=== PATIENT | female | born 1980 | race Caucasian/White ===

== ENCOUNTER 2017-07-08 06:02 | Inpatient (IN) | payer MEDICAID, OTHER ==
[~2017-07-08] VITALS: Ht 152.4 cm; Wt 119.1 kg
[~2017-07-08 06:02] MED LIST: ACET500T63 PO; DIPH50CA PO; DIVA500T4 PO; HYDR25CA PO; RISP1TAB45 PO
[2017-07-08] MEDS ORDERED: NALOXONE 0.4 MG/ML, 1ML ONE (06:41)
[2017-07-08 06:51] LABS: BLOOD UREA NITROGEN 24 mg/dL (7-18)
[2017-07-08 06:56] LABS: ACETAMINOPHEN 4 mcg/mL (10-30)
[2017-07-08] MEDS ORDERED: NALOXONE 0.4 MG/ML, 1ML IVPush ONE (07:00)
[2017-07-08 07:06] LABS: ASPARTATE AMINO TRANSFERASE 3017 U/L (15-37)
[2017-07-08 07:08] LABS: HEMATOCRIT 35.7 % (34.6-47.8); HEMOGLOBIN 11.8 g/dL (11.7-16.4); WHITE BLOOD COUNT 8.7 x10^3/uL (3.4-10)
[2017-07-08 07:10] LABS: DIFF TOTAL CELLS COUNTED 100 CELL DIFF
[2017-07-08 07:14] LABS: VERIFY COUNTS? YES
[2017-07-08 07:15] LABS: ANISOCYTOSIS 1+; POLYCHROMASIA 1+
[2017-07-08] MEDS ORDERED: SODIUM CHLORIDE 0.9% 1,000 ML IV ONE (07:16)
[2017-07-08 07:19] LABS: DAU SCREEN DISCLAIMER
[2017-07-08] MEDS ORDERED: SODIUM POLY SULFONATE UDC 15 GM/60 ML PO ONE (07:30)
[2017-07-08] MEDS ORDERED: ALBUTEROL 0.5%, 20ML NPPB ONE (07:30)
[2017-07-08] MEDS ORDERED: SODIUM CHLORIDE 0.9% 1,000ML IVBOLUS ONE ×2 (07:30→08:30)
[2017-07-08] MEDS ORDERED: ACETYLCYSTEINE 20%, 30ML PO SCH (07:30)
[2017-07-08] MEDS ORDERED: SODIUM CHLORIDE FLUSH 10ML SYR IVF ONE (07:30)
[2017-07-08] MEDS ORDERED: ACETYLCYSTEINE 20%, 30ML PO ONE (07:30)
[2017-07-08] MEDS ORDERED: INSULIN REGULAR 100 UNITS/ML, 3ML VIAL IVPush ONE (07:30)
[2017-07-08] MEDS ORDERED: CALCIUM CHLORIDE 10%, 10ML SYR IVPush ONE (07:30)
[2017-07-08] MEDS ORDERED: DEXTROSE 50%, 50ML SYRINGE IVPush ONE (07:30)
[2017-07-08] MEDS ORDERED: DEXTROSE 50%, 50ML VIAL ONE (07:40)
[2017-07-08] MEDS ORDERED: CALCIUM CHLORIDE 10%, 10ML SYR ONE (07:40)
[2017-07-08] MEDS ORDERED: SODIUM POLYSTYRENE SULFONATE ORAL SUSP ONE ×2 (07:41→07:54)
[2017-07-08] MEDS ORDERED: INSULIN REGULAR 100 UNITS/ML, 3ML VIAL ONE (07:42)
[2017-07-08] MEDS ORDERED: DEXTROSE 5% IV ONE ×6 (09:00→14:00)
[2017-07-08] MEDS ORDERED: ACETYLCYSTEINE IV ONE ×6 (09:00→14:00)
[2017-07-08] MEDS ORDERED: ALBUTEROL/IPRATROPIUM 2.5MG/0.5MG, 3 ML ONE (10:58)
[2017-07-08] MEDS ORDERED: TEMAZEPAM 15 MG CAPSULE PO PRN (11:00)
[2017-07-08] MEDS: HEPARIN 5,000 UNITS/ML, 1ML SQ SCH ×2 (11:00→19:00)
[2017-07-08] MEDS ORDERED: POLYETHYLENE GLYCOL 17 GM PACKET PO PRN (11:00)
[2017-07-08] MEDS ORDERED: LABETALOL 5MG/ML, 20ML IVPush PRN (11:00)
[2017-07-08] MEDS: NICOTINE 21 MG/24 HR PATCH.TD24 TD SCH (11:00)
[2017-07-08] MEDS ORDERED: ONDANSETRON 2MG/ML, 2ML IVPush PRN (11:00)
[2017-07-08] MEDS: SODIUM CHLORIDE 0.9% 1,000 ML IV SCH ×2 (12:44→22:06)
[2017-07-08 15:08] LABS: BLOOD UREA NITROGEN 30 mg/dL (7-18)
[2017-07-08] MEDS: INSULIN ASPART 100 UNITS/ML, PEN SQ-INSULIN SCH ×2 (15:31→23:38)
[2017-07-08] MEDS ORDERED: ACETYLCYSTEINE 10,000 MG in DEXTROSE 5% 1,000 ML IV ONE (16:30)
[2017-07-08] MEDS ORDERED: OXYcodone IR 5MG TABLET ONE (17:48)
[2017-07-08] MEDS: OXYcodone IR 5MG TABLET PO PRN ×2 (17:50→23:36)
[2017-07-09] MEDS: HEPARIN 5,000 UNITS/ML, 1ML SQ SCH (03:00)
[2017-07-09] MEDS ORDERED: PNEUMOCOCCAL 23 VACCINE IM-VACC ONE (04:00)
[2017-07-09 05:01] LABS: HEMATOCRIT 30.5 % (34.6-47.8); HEMOGLOBIN 10.6 g/dL (11.7-16.4); WHITE BLOOD COUNT 2.9 x10^3/uL (3.4-10)
[2017-07-09 05:07] LABS: BLOOD UREA NITROGEN 35 mg/dL (7-18)
[2017-07-09 05:34] LABS: ASPARTATE AMINO TRANSFERASE 10825 U/L (15-37); TOTAL IRON BINDING CAPACITY 314 mcg/dL (250-450)
[2017-07-09 05:40] LABS: FERRITIN > 2000.0 ng/mL (8-252)
[2017-07-09 05:47] LABS: DIFF TOTAL CELLS COUNTED 100 CELL DIFF
[2017-07-09 05:56] LABS: ANISOCYTOSIS 1+; POLYCHROMASIA 1+; VERIFY COUNTS? YES
[2017-07-09] MEDS: SODIUM CHLORIDE 0.9% 1,000 ML IV SCH ×4 (05:56→23:59)
[2017-07-09] MEDS: OXYcodone IR 5MG TABLET PO PRN ×2 (05:56→21:23)
[2017-07-09] MEDS ORDERED: MAGNESIUM SULFATE PMX 2GM/50ML 50 ML IV ONE (08:00)
[2017-07-09] MEDS: INSULIN ASPART 100 UNITS/ML, PEN SQ-INSULIN SCH ×4 (08:18→20:15)
[2017-07-09] MEDS: LACTULOSE 10 GM/15 ML UDC PO SCH ×3 (09:27→21:11)
[2017-07-09] MEDS: CHOLECALCIFEROL 1,000 UNIT TABLET PO SCH (09:28)
[2017-07-09] MEDS: PANTOPROZOLE 40MG TABLET PO SCH (09:28)
[2017-07-09] MEDS: SENNA/DOCUSATE TABLET PO SCH (09:28)
[2017-07-09] MEDS: ACETYLCYSTEINE 10,000 MG in DEXTROSE 5% 1,000 ML IV SCH (10:12)
[2017-07-09] MEDS: NICOTINE 21 MG/24 HR PATCH.TD24 TD SCH (11:00)
[2017-07-09 14:31] LABS: BLOOD UREA NITROGEN 37 mg/dL (7-18)
[2017-07-09 14:54] LABS: ASPARTATE AMINO TRANSFERASE 8480 U/L (15-37)
[2017-07-09] MEDS ORDERED: POTASSIUM CHLORIDE 20 MEQ TAB.ER.PRT PO ONE (16:00)
[2017-07-10] MEDS: OXYcodone IR 5MG TABLET PO PRN ×2 (02:03→06:15)
[2017-07-10 04:00] VITALS: BP 152/89
[2017-07-10] MEDS: ACETYLCYSTEINE 10,000 MG in DEXTROSE 5% 1,000 ML IV SCH ×2 (04:12→23:44)
[2017-07-10 04:38] LABS: HEMATOCRIT 31.6 % (34.6-47.8); HEMOGLOBIN 10.9 g/dL (11.7-16.4); WHITE BLOOD COUNT 3.8 x10^3/uL (3.4-10)
[2017-07-10 05:02] LABS: DIFF TOTAL CELLS COUNTED 100 CELL DIFF
[2017-07-10 05:04] LABS: ANISOCYTOSIS 1+; POLYCHROMASIA 1+; VERIFY COUNTS? YES
[2017-07-10 05:07] LABS: ASPARTATE AMINO TRANSFERASE 8472 U/L (15-37); BLOOD UREA NITROGEN 38 mg/dL (7-18)
[2017-07-10] MEDS: INSULIN ASPART 100 UNITS/ML, PEN SQ-INSULIN SCH ×4 (06:22→20:49)
[2017-07-10] MEDS ORDERED: POTASSIUM CHLORIDE 20 MEQ TAB.ER.PRT PO ONE (07:30)
[2017-07-10] MEDS: METOPROLOL TARTRATE 25 MG TABLET PO SCH ×2 (08:48→18:27)
[2017-07-10] MEDS: SENNA/DOCUSATE TABLET PO SCH (08:49)
[2017-07-10] MEDS: PANTOPROZOLE 40MG TABLET PO SCH (08:49)
[2017-07-10] MEDS: CHOLECALCIFEROL 1,000 UNIT TABLET PO SCH (08:49)
[2017-07-10] MEDS: SODIUM CHLORIDE 0.9% 1,000 ML IV SCH (08:50)
[2017-07-10] MEDS: LACTULOSE 10 GM/15 ML UDC PO SCH ×3 (09:55→20:49)
[2017-07-10 11:04] VITALS: BP 144/87
[2017-07-10] MEDS: NICOTINE 21 MG/24 HR PATCH.TD24 TD SCH (12:32)
[2017-07-10 18:41] VITALS: BP 151/74
[2017-07-11] MEDS: SODIUM CHLORIDE 0.9% 1,000 ML IV SCH ×3 (02:05→11:41)
[2017-07-11 02:14] VITALS: BP 138/84
[2017-07-11 04:49] LABS: BLOOD UREA NITROGEN 31 mg/dL (7-18)
[2017-07-11 05:01] LABS: HEMATOCRIT 30.9 % (34.6-47.8); HEMOGLOBIN 10.6 g/dL (11.7-16.4); WHITE BLOOD COUNT 3.3 x10^3/uL (3.4-10)
[2017-07-11 05:04] LABS: ASPARTATE AMINO TRANSFERASE 2519 U/L (15-37)
[2017-07-11 05:47] LABS: DIFF TOTAL CELLS COUNTED 100 CELL DIFF
[2017-07-11 05:49] LABS: VERIFY COUNTS? YES
[2017-07-11 05:50] LABS: POLYCHROMASIA 1+
[2017-07-11] MEDS: METOPROLOL TARTRATE 25 MG TABLET PO SCH ×2 (06:05→18:04)
[2017-07-11 07:14] VITALS: BP 172/109
[2017-07-11] MEDS ORDERED: POTASSIUM CHLORIDE 20 MEQ TAB.ER.PRT PO ONE (07:30)
[2017-07-11 08:27] VITALS: BP 117/76
[2017-07-11] MEDS: PANTOPROZOLE 40MG TABLET PO SCH (08:46)
[2017-07-11] MEDS: CHOLECALCIFEROL 1,000 UNIT TABLET PO SCH (08:46)
[2017-07-11] MEDS: LACTULOSE 20 GM/30 ML UDC PO SCH ×2 (08:46→17:10)
[2017-07-11] MEDS: INSULIN ASPART 100 UNITS/ML, PEN SQ-INSULIN SCH ×3 (08:51→17:09)
[2017-07-11] MEDS: SENNA/DOCUSATE TABLET PO SCH (09:00)
[2017-07-11] MEDS: NICOTINE 21 MG/24 HR PATCH.TD24 TD SCH ×2 (11:44→11:46)
[2017-07-11] MEDS ORDERED: ACETYLCYSTEINE 10,000 MG in DEXTROSE 5% 1,000 ML IV SCH (13:00)
[2017-07-11] MEDS ORDERED: TRAM50TA2 PO (14:38)
[2017-07-11] MEDS ORDERED: PANT40TA5 PO (14:38)
[2017-07-11] MEDS ORDERED: CHOL10003 PO (14:38)
[2017-07-11] MEDS ORDERED: INSU100I18 SQ-INSULIN (14:38)
[2017-07-11] MEDS ORDERED: LACT20SO13 PO (14:38)
[2017-07-11] MEDS ORDERED: METO25TA35 PO (14:38)
[2017-07-11 18:07] VITALS: BP 162/85
== END 2017-07-11 18:10 | disposition short-term general hospital (02) | DRG 441 ==
LOC: ED 06:56 → EDIP 10:08 → CCU 21:42 → 3NW 07-10 10:58
PROVIDERS: ADMIT Internal Medicine; ATTEND Internal Medicine
DX: K72.00 Acute and subacute hepatic failure without coma (principal); N17.0 Acute kidney failure with tubular necrosis; G92 Toxic encephalopathy; D61.818 Other pancytopenia; E11.65 Type 2 diabetes mellitus with hyperglycemia; D68.9 Coagulation defect, unspecified; E87.2 Acidosis; E11.21 Type 2 diabetes mellitus with diabetic nephropathy; B17.9 Acute viral hepatitis, unspecified; E87.1 Hypo-osmolality and hyponatremia; F31.30 Bipolar disorder, current episode depressed, mild or moderate severity, unspecified; T39.1X1A Poisoning by 4-Aminophenol derivatives, accidental (unintentional), initial encounter; E83.42 Hypomagnesemia; E87.5 Hyperkalemia; E87.6 Hypokalemia; F10.20 Alcohol dependence, uncomplicated; F11.10 Opioid abuse, uncomplicated; F15.90 Other stimulant use, unspecified, uncomplicated; F17.210 Nicotine dependence, cigarettes, uncomplicated; E55.9 Vitamin D deficiency, unspecified; F41.1 Generalized anxiety disorder; F43.10 Post-traumatic stress disorder, unspecified; G89.29 Other chronic pain; I10 Essential (primary) hypertension; J45.909 Unspecified asthma, uncomplicated; K70.9 Alcoholic liver disease, unspecified; L20.9 Atopic dermatitis, unspecified; K76.0 Fatty (change of) liver, not elsewhere classified; Z59.0 Homelessness; Z88.2 Allergy status to sulfonamides; Z91.5 Personal history of self-harm; Z28.82 Immunization not carried out because of caregiver refusal
CPT/HCPCS: 36415; 71010; 76700; 76770; 80048; 80053; 80307; 80329; 81001; 82140; 82306; 82570; 82728; 82962; 83540; 83550; 83605; 83735; 83970; 84100; 84156; 84439; 84443; 84703; 85025; 85610; 87040; 87081; 93005; 94640; 96361; 96365; 96366; 96375; J0132; J1815; J2310; J2405; J7060; J7070; G0480; J3475; J7030

== ENCOUNTER 2017-08-10 09:35 | Emergency (ER) | payer MEDICAID ==
[~2017-08-10] VITALS: Ht 165.1 cm; Wt 100.0 kg
[~2017-08-10 09:35] MED LIST changes: +CHOL10003 PO; +INSU100I18 SQ-INSULIN; +LACT20SO13 PO; +METO25TA35 PO; +PANT40TA5 PO; +TRAM50TA2 PO
[2017-08-10 09:36] VITALS: BP 124/76
[2017-08-10] MEDS ORDERED: MORPHINE SULFATE 4 MG/ML, 1ML IVPush PRN (10:00)
[2017-08-10] MEDS ORDERED: ONDANSETRON 2MG/ML, 2ML IVPush ONE (10:00)
[2017-08-10] MEDS ORDERED: SODIUM CHLORIDE 0.9% 1,000ML IVBOLUS ONE (10:00)
[2017-08-10] MEDS ORDERED: ONDANSETRON 2MG/ML, 2ML ONE (10:01)
[2017-08-10 10:02] LABS: HEMATOCRIT 39.3 % (34.6-47.8); HEMOGLOBIN 13.2 g/dL (11.7-16.4); WHITE BLOOD COUNT 6.7 x10^3/uL (3.4-10)
[2017-08-10] MEDS ORDERED: MORPHINE SULFATE 4 MG/ML, 1ML ONE (10:02)
[2017-08-10 10:11] LABS: BLOOD UREA NITROGEN 16 mg/dL (7-18)
[2017-08-10 10:16] LABS: ASPARTATE AMINO TRANSFERASE 26 U/L (15-37)
== END 2017-08-10 12:28 | disposition home or self-care (01) ==
LOC: ED 10:32
DX: R10.31 Right lower quadrant pain (principal); R19.7 Diarrhea, unspecified; R35.0 Frequency of micturition; R11.0 Nausea; E11.9 Type 2 diabetes mellitus without complications; I10 Essential (primary) hypertension; F10.20 Alcohol dependence, uncomplicated; J45.909 Unspecified asthma, uncomplicated
CPT/HCPCS: 36415; 76830; 80053; 81003; 84703; 85025; 96361; 96374; 96375; 99285; J2405; J7030

== ENCOUNTER 2017-08-12 01:16 | Emergency (ER) | payer MEDICAID ==
[~2017-08-12] VITALS: Ht 154.9 cm; Wt 104.0 kg
[2017-08-12] MEDS ORDERED: MORPHINE SULFATE 4 MG/ML, 1ML ONE (01:46)
[2017-08-12] MEDS ORDERED: ONDANSETRON 2MG/ML, 2ML ONE (01:46)
[2017-08-12 01:53] LABS: HEMATOCRIT 36.8 % (34.6-47.8); HEMOGLOBIN 12.3 g/dL (11.7-16.4); WHITE BLOOD COUNT 6.7 x10^3/uL (3.4-10)
[2017-08-12 01:59] LABS: ASPARTATE AMINO TRANSFERASE 19 U/L (15-37); BLOOD UREA NITROGEN 15 mg/dL (7-18)
[2017-08-12] MEDS ORDERED: ONDANSETRON 2MG/ML, 2ML IVPush ONE (02:00)
[2017-08-12] MEDS ORDERED: MORPHINE SULFATE 4 MG/ML, 1ML IVPush PRN (02:00)
[2017-08-12] MEDS ORDERED: SODIUM CHLORIDE 0.9% 1,000ML IVBOLUS ONE (02:00)
[2017-08-12] MEDS ORDERED: ATOM25CA PO (02:06)
[2017-08-12] MEDS ORDERED: DIVA250T4 PO (02:06)
[2017-08-12] MEDS ORDERED: ZOLP10TA PO (02:06)
[2017-08-12] MEDS ORDERED: ONDA4TAB7 PO (02:06)
[2017-08-12] MEDS ORDERED: ASPI-515 PO (02:06)
[2017-08-12] MEDS ORDERED: SITA50TA PO (02:06)
[2017-08-12] MEDS ORDERED: HYDR25CA PO (02:06)
[2017-08-12] MEDS ORDERED: HYDR-3240 PO (02:06)
[2017-08-12] MEDS ORDERED: CLON1TAB PO (02:06)
[2017-08-12] MEDS ORDERED: LORazepam 1MG TABLET ONE (02:36)
[2017-08-12] MEDS ORDERED: OMNIPAQUE 350 MG/ML, 100ML BOTTLE ONE (02:54)
[2017-08-12] MEDS ORDERED: LORazepam 1MG TABLET PO ONE (03:00)
[2017-08-12 04:24] VITALS: BP 115/44
== END 2017-08-12 04:28 | disposition home or self-care (01) ==
LOC: ED 01:50
DX: Z76.0 Encounter for issue of repeat prescription (principal); K43.9 Ventral hernia without obstruction or gangrene; R00.2 Palpitations; F31.9 Bipolar disorder, unspecified; F43.12 Post-traumatic stress disorder, chronic; E11.9 Type 2 diabetes mellitus without complications; J45.909 Unspecified asthma, uncomplicated; I10 Essential (primary) hypertension; F10.20 Alcohol dependence, uncomplicated; F41.1 Generalized anxiety disorder; Z88.2 Allergy status to sulfonamides
CPT/HCPCS: 36415; 74177; 80053; 81003; 83690; 84703; 85025; 93005; 96361; 96374; 96375; 99285; J2405; J7030; Q9967

== ENCOUNTER 2017-08-16 07:36 | Emergency (ER) | payer MEDICAID ==
[~2017-08-16] VITALS: Ht 154.9 cm; Wt 104.0 kg
[~2017-08-16 07:36] MED LIST changes: +ASPI-515 PO; +ATOM25CA PO; +CLON1TAB PO; +DIVA250T4 PO; +HYDR-3240 PO; +ONDA4TAB7 PO; +SITA50TA PO; +ZOLP10TA PO
[2017-08-16] MEDS ORDERED: HYDROcodone/APAP 5/325 TABLET PO ONE (08:00)
[2017-08-16] MEDS ORDERED: ONDANSETRON ODT 4 MG PO ONE (08:00)
[2017-08-16] MEDS ORDERED: ONDANSETRON ODT 4 MG ONE (08:07)
[2017-08-16 08:41] VITALS: BP 119/64
== END 2017-08-16 08:43 | disposition home or self-care (01) ==
LOC: ED 07:55
DX: K43.9 Ventral hernia without obstruction or gangrene (principal); R10.31 Right lower quadrant pain; R11.0 Nausea; E11.9 Type 2 diabetes mellitus without complications; J45.909 Unspecified asthma, uncomplicated; I10 Essential (primary) hypertension
CPT/HCPCS: 99283; Q0162

== ENCOUNTER 2017-08-21 10:41 | Emergency (ER) | payer MEDICAID ==
[~2017-08-21] VITALS: Ht 154.9 cm; Wt 100.6 kg
[2017-08-21] MEDS ORDERED: ONDANSETRON ODT 4 MG ONE (11:17)
[2017-08-21] MEDS ORDERED: LORazepam 2 MG/ML, 1ML ONE (11:17)
[2017-08-21 11:22] VITALS: BP 157/99
[2017-08-21] MEDS ORDERED: LORazepam 2 MG/ML, 1ML IM ONE (11:30)
[2017-08-21] MEDS ORDERED: ONDANSETRON ODT 4 MG PO ONE (11:30)
[2017-08-21 11:35] LABS: HEMATOCRIT 39.4 % (34.6-47.8); HEMOGLOBIN 13.3 g/dL (11.7-16.4); WHITE BLOOD COUNT 6.7 x10^3/uL (3.4-10)
[2017-08-21 11:43] LABS: ASPARTATE AMINO TRANSFERASE 100 U/L (15-37); BLOOD UREA NITROGEN 7 mg/dL (7-18)
[2017-08-21] MEDS ORDERED: ALBUTEROL SULFATE 2.5 MG/3 ML NPPB ONE (12:00)
[2017-08-21] MEDS ORDERED: ALBUTEROL SULFATE 2.5 MG/3 ML ONE (12:02)
[2017-08-21 12:48] LABS: ACETAMINOPHEN < 2 mcg/mL (10-30)
[2017-08-21 13:18] LABS: DAU SCREEN DISCLAIMER
[2017-08-21] MEDS ORDERED: MAALOX/HYOSCYAMINE/LIDOCAINE 45 ML BTL PO ONE (14:00)
[2017-08-21] MEDS ORDERED: MAALOX/HYOSCYAMINE/LIDOCAINE 45 ML BTL ONE (14:06)
[2017-08-25] MEDS ORDERED: QUET100T4 PO (06:37)
[2017-08-25] MEDS ORDERED: ALBU1.25 NEB (06:38)
[2017-08-25] MEDS ORDERED: MELO7.5T5 PO (06:38)
== END 2017-08-21 14:11 | disposition home or self-care (01) ==
LOC: ED 14:05
DX: J20.8 Acute bronchitis due to other specified organisms (principal); I10 Essential (primary) hypertension; F15.10 Other stimulant abuse, uncomplicated; F32.9 Major depressive disorder, single episode, unspecified; E11.9 Type 2 diabetes mellitus without complications; Z88.2 Allergy status to sulfonamides
CPT/HCPCS: 36415; 80053; 80307; 80329; 83690; 84703; 85025; 94640; 96372; 99284; J2060; Q0162; J7613; G0479; G0480

== ENCOUNTER 2018-01-06 19:19 | Emergency (ER) | payer MEDICAID ==
[~2018-01-06] VITALS: Ht 154.9 cm; Wt 100.0 kg
[~2018-01-06 19:19] MED LIST changes: +ALBU1.25 NEB; +MELO7.5T5 PO; +QUET100T4 PO
[2018-01-06 19:59] LABS: BASOPHILS # (AUTO) 0.05 x10^3/uL (0-0.1); BASOPHILS % (AUTO) 1 % (0-1); EOSINOPHILS # (AUTO) 0.07 x10^3/uL (0-0.4); EOSINOPHILS % (AUTO) 1 % (1-7); LYMPHOCYTES # (AUTO) 1.91 x10^3/uL (1-3.4); LYMPHOCYTES % (AUTO) 36 % (22-44); MD NO; MEAN CORPUSCULAR HEMOGLOBIN 30.4 pg (27.0-34.8); MEAN CORPUSCULAR HGB CONC 33.5 g/dL (32.4-35.8); MEAN CORPUSCULAR VOLUME 90.9 fL (80-100); MEAN PLATELET VOLUME 7.6 fL (7.4-10.4); MONOCYTES # (AUTO) 0.36 x10^3/uL (0.2-0.8); MONOCYTES % (AUTO) 7 % (2-9); NEUTROPHILS # (AUTO) 2.93 x10^3/uL (1.8-6.8); NEUTROPHILS % (AUTO) 55 % (42-75); PLATELET COUNT 311 x10^3/uL (130-400); RED BLOOD COUNT 4.18 x10^6/uL (3.82-5.3); RED CELL DISTRIBUTION WIDTH 14.4 % (9.6-15.2)
[2018-01-06] MEDS ORDERED: KETOROLAC 30 MG/1 ML ONE (19:59)
[2018-01-06] MEDS ORDERED: DIPHENHYDRAMINE 50 MG/ML, 1ML ONE (19:59)
[2018-01-06] MEDS ORDERED: METOCLOPRAMIDE 5 MG/ML, 2ML ONE (19:59)
[2018-01-06] MEDS ORDERED: SODIUM CHLORIDE 0.9% 1,000ML IVBOLUS ONE (20:00)
[2018-01-06] MEDS ORDERED: DIPHENHYDRAMINE 50 MG/ML, 1ML IVPush ONE (20:00)
[2018-01-06] MEDS ORDERED: SODIUM CHLORIDE FLUSH 10ML SYR IVF ONE (20:00)
[2018-01-06] MEDS ORDERED: KETOROLAC 30 MG/1 ML IVPush ONE (20:00)
[2018-01-06] MEDS ORDERED: METOCLOPRAMIDE 5 MG/ML, 2ML IVPush ONE (20:00)
[2018-01-06 20:06] LABS: ALANINE AMINOTRANSFERASE 52 U/L (12-78); ALBUMIN 3.7 g/dL (3.4-5.0); ANION GAP 10 mmol/L (5-15); CALCIUM 8.2 mg/dL (8.5-10.1); CHLORIDE 106 mmol/L (98-107); CREATININE 0.68 mg/dL (0.55-1.02)
[2018-01-06 20:08] LABS: ALKALINE PHOSPHATASE 56 U/L (45-117); BILIRUBIN,TOTAL 0.2 mg/dL (0.2-1.0); TOTAL PROTEIN 7.5 g/dL (6.4-8.2)
[2018-01-06 20:46] LABS: MICROSCOPIC NOT IND
[2018-01-06 20:52] LABS: CULTURE INDICATED? NO
[2018-01-06 21:52] VITALS: BP 114/59
== END 2018-01-06 21:58 | disposition home or self-care (01) ==
LOC: ED 21:52
DX: R10.84 Generalized abdominal pain (principal); I10 Essential (primary) hypertension; E11.9 Type 2 diabetes mellitus without complications; J45.909 Unspecified asthma, uncomplicated
CPT/HCPCS: 36415; 80053; 81003; 83690; 85025; 96361; 96374; 96375; 99285; J1200; J1885; J2765; J7030

== ENCOUNTER 2018-01-13 09:42 | Emergency (ER) | payer MEDICAID ==
[~2018-01-13] VITALS: Ht 152.4 cm; Wt 105.3 kg
[2018-01-13 11:24] LABS: MICROSCOPIC NOT IND
[2018-01-13] MEDS ORDERED: MAALOX/HYOSCYAMINE/LIDOCAINE 45 ML BTL PO ONE (12:00)
[2018-01-13] MEDS ORDERED: KETOROLAC 30 MG/1 ML IVPush ONE (12:00)
[2018-01-13] MEDS ORDERED: METOCLOPRAMIDE 5 MG/ML, 2ML IVPush ONE (12:00)
[2018-01-13] MEDS ORDERED: FAMOTIDINE 20 MG/2 ML IVP ONE (12:00)
[2018-01-13] MEDS ORDERED: DIPHENHYDRAMINE 50 MG/ML, 1ML IVPush ONE (12:00)
[2018-01-13] MEDS ORDERED: SODIUM CHLORIDE FLUSH 10ML SYR IVF ONE ×2 (12:00)
[2018-01-13] MEDS ORDERED: SODIUM CHLORIDE 0.9% 1,000ML IVBOLUS ONE (12:00)
[2018-01-13 12:33] LABS: BASOPHILS # (AUTO) 0.03 x10^3/uL (0-0.1); BASOPHILS % (AUTO) 0 % (0-1); EOSINOPHILS # (AUTO) 0.11 x10^3/uL (0-0.4); EOSINOPHILS % (AUTO) 2 % (1-7); LYMPHOCYTES # (AUTO) 1.61 x10^3/uL (1-3.4); LYMPHOCYTES % (AUTO) 21 % (22-44); MD NO; MEAN CORPUSCULAR HEMOGLOBIN 30.7 pg (27.0-34.8); MEAN CORPUSCULAR VOLUME 90.4 fL (80-100); MEAN PLATELET VOLUME 8.1 fL (7.4-10.4); MONOCYTES # (AUTO) 0.44 x10^3/uL (0.2-0.8); MONOCYTES % (AUTO) 6 % (2-9); NEUTROPHILS # (AUTO) 5.47 x10^3/uL (1.8-6.8); NEUTROPHILS % (AUTO) 72 % (42-75); PLATELET COUNT 215 x10^3/uL (130-400); RED BLOOD COUNT 4.14 x10^6/uL (3.82-5.3); RED CELL DISTRIBUTION WIDTH 14.3 % (9.6-15.2)
[2018-01-13 12:40] LABS: ALANINE AMINOTRANSFERASE 34 U/L (12-78); ALBUMIN 3.7 g/dL (3.4-5.0); ANION GAP 7 mmol/L (5-15); CALCIUM 9.2 mg/dL (8.5-10.1); CHLORIDE 104 mmol/L (98-107)
[2018-01-13 12:42] LABS: ALKALINE PHOSPHATASE 64 U/L (45-117); BILIRUBIN,TOTAL 0.3 mg/dL (0.2-1.0); TOTAL PROTEIN 7.3 g/dL (6.4-8.2)
[2018-01-13] MEDS ORDERED: DIPHENHYDRAMINE 50 MG/ML, 1ML ONE (12:47)
[2018-01-13] MEDS ORDERED: KETOROLAC 30 MG/1 ML ONE (12:47)
[2018-01-13] MEDS ORDERED: METOCLOPRAMIDE 5 MG/ML, 2ML ONE (12:47)
[2018-01-13] MEDS ORDERED: MAALOX/HYOSCYAMINE/LIDOCAINE 45 ML BTL ONE (12:47)
[2018-01-13] MEDS ORDERED: FAMOTIDINE 20 MG/2 ML ONE (12:47)
[2018-01-13 12:57] VITALS: BP 102/57
== END 2018-01-13 14:18 | disposition home or self-care (01) ==
LOC: ED 13:26
DX: K29.70 Gastritis, unspecified, without bleeding (principal); F10.20 Alcohol dependence, uncomplicated; Z88.2 Allergy status to sulfonamides; E11.9 Type 2 diabetes mellitus without complications; F32.9 Major depressive disorder, single episode, unspecified; F43.10 Post-traumatic stress disorder, unspecified; G89.29 Other chronic pain; I10 Essential (primary) hypertension; K29.00 Acute gastritis without bleeding; Z79.82 Long term (current) use of aspirin
CPT/HCPCS: 36415; 80053; 81003; 83690; 85025; 96361; 96374; 96375; 99284; J1200; J1885; J2765; J7030; S0028

== ENCOUNTER 2018-05-01 18:49 | Emergency (ER) | payer MEDICAID ==
[~2018-05-01] VITALS: Ht 152.4 cm; Wt 77.5 kg
[~2018-05-01 18:49] MED LIST changes: +AMOX1TAB64 PO; +DIVA500T2 PO; +FOLI-17 PO; +OMEP-110 PO; +THIA100T10 PO
[2018-05-01] MEDS ORDERED: KETOROLAC 30 MG/1 ML IVPush ONE (19:00)
[2018-05-01] MEDS ORDERED: SODIUM CHLORIDE FLUSH 10ML SYR IVF ONE (19:00)
[2018-05-01] MEDS ORDERED: METOCLOPRAMIDE 5 MG/ML, 2ML IVPush ONE (19:00)
[2018-05-01] MEDS ORDERED: OMNIPAQUE 350 MG/ML, 100ML BOTTLE ONE (19:00)
[2018-05-01] MEDS ORDERED: CHLORDIAZEPOXIDE 10 MG CAPSULE PO PRN (19:00)
[2018-05-01] MEDS ORDERED: SODIUM CHLORIDE 0.9% 1,000ML IVBOLUS ONE (19:00)
[2018-05-01 19:21] LABS: CULTURE INDICATED? YES; MICROSCOPIC INDICATED
[2018-05-01] MEDS ORDERED: NORCO (19:21)
[2018-05-01] MEDS ORDERED: LISINOPRIL PO (19:21)
[2018-05-01 19:26] LABS: BASOPHILS # (AUTO) 0.01 x10^3/uL (0-0.1); BASOPHILS % (AUTO) 0 % (0-1); EOSINOPHILS # (AUTO) 0.08 x10^3/uL (0-0.4); EOSINOPHILS % (AUTO) 1 % (1-7); LYMPHOCYTES # (AUTO) 1.61 x10^3/uL (1-3.4); LYMPHOCYTES % (AUTO) 26 % (22-44); MD NO; MEAN CORPUSCULAR HEMOGLOBIN 29.9 pg (27.0-34.8); MEAN CORPUSCULAR HGB CONC 33.6 g/dL (32.4-35.8); MEAN CORPUSCULAR VOLUME 88.8 fL (80-100); MEAN PLATELET VOLUME 7.9 fL (7.4-10.4); MONOCYTES # (AUTO) 0.39 x10^3/uL (0.2-0.8); MONOCYTES % (AUTO) 6 % (2-9); NEUTROPHILS # (AUTO) 4.14 x10^3/uL (1.8-6.8); NEUTROPHILS % (AUTO) 66 % (42-75); PLATELET COUNT 224 x10^3/uL (130-400); RED BLOOD COUNT 4.33 x10^6/uL (3.82-5.3); RED CELL DISTRIBUTION WIDTH 15.3 % (9.6-15.2)
[2018-05-01] MEDS ORDERED: CHLORDIAZEPOXIDE 10 MG CAPSULE PO ONE (19:30)
[2018-05-01 19:36] LABS: ALANINE AMINOTRANSFERASE 25 U/L (12-78); ALBUMIN 3.3 g/dL (3.4-5.0); ANION GAP 6 mmol/L (5-15); CALCIUM 8.8 mg/dL (8.5-10.1); CHLORIDE 106 mmol/L (98-107); CREATININE 0.66 mg/dL (0.55-1.02)
[2018-05-01 19:38] LABS: ALKALINE PHOSPHATASE 53 U/L (45-117); BILIRUBIN,TOTAL 0.2 mg/dL (0.2-1.0)
[2018-05-01] MEDS ORDERED: KETOROLAC 30 MG/1 ML ONE (19:43)
[2018-05-01] MEDS ORDERED: METOCLOPRAMIDE 5 MG/ML, 2ML ONE (19:43)
[2018-05-01] MEDS ORDERED: CHLORDIAZEPOXIDE 10 MG CAPSULE ONE (19:43)
[2018-05-01 21:18] VITALS: BP 100/50
== END 2018-05-01 22:19 | disposition home or self-care (01) ==
LOC: ED 22:10
DX: K43.2 Incisional hernia without obstruction or gangrene (principal); Z76.0 Encounter for issue of repeat prescription; R11.0 Nausea; E11.9 Type 2 diabetes mellitus without complications; I10 Essential (primary) hypertension; J45.909 Unspecified asthma, uncomplicated
CPT/HCPCS: 36415; 74177; 80053; 81001; 83690; 85025; 87086; 96374; 96375; 99285; J1885; J2765; J7030; Q9967

== ENCOUNTER 2018-05-04 13:06 | Emergency (ER) | payer MEDICAID ==
[~2018-05-04 13:06] MED LIST changes: +LISINOPRIL PO; +NORCO
== END 2018-05-04 13:48 | disposition left against medical advice (07) ==
LOC: ED 13:42
DX: F10.129 Alcohol abuse with intoxication, unspecified (principal); I10 Essential (primary) hypertension; E11.9 Type 2 diabetes mellitus without complications; F17.200 Nicotine dependence, unspecified, uncomplicated
CPT/HCPCS: 99283

== ENCOUNTER 2018-05-11 20:19 | Emergency (ER) | payer MEDICAID ==
[~2018-05-11] VITALS: Ht 154.9 cm; Wt 96.0 kg
[2018-05-11 20:25] VITALS: BP 101/58
== END 2018-05-11 22:04 | disposition home or self-care (01) ==
LOC: ED 21:58
DX: F10.129 Alcohol abuse with intoxication, unspecified (principal); E11.9 Type 2 diabetes mellitus without complications; J45.909 Unspecified asthma, uncomplicated; F15.10 Other stimulant abuse, uncomplicated; I10 Essential (primary) hypertension; F43.10 Post-traumatic stress disorder, unspecified
CPT/HCPCS: 99283

== ENCOUNTER 2018-05-22 06:34 | Emergency (ER) | payer MEDICAID ==
[~2018-05-22] VITALS: Ht 154.9 cm; Wt 97.5 kg
[2018-05-22] MEDS ORDERED: MAALOX/HYOSCYAMINE/LIDOCAINE 45 ML BTL ONE (06:57)
[2018-05-22] MEDS ORDERED: LORazepam 2 MG/ML, 1ML ONE (06:58)
[2018-05-22] MEDS ORDERED: PLEASE ENTER HEIGHT AND WEIGHT MC SCH (07:00)
[2018-05-22] MEDS ORDERED: SODIUM CHLORIDE 0.9% 1,000ML IVBOLUS ONE (07:00)
[2018-05-22] MEDS ORDERED: LORazepam 2 MG/ML, 1ML IVPush ONE (07:00)
[2018-05-22] MEDS ORDERED: MAALOX/HYOSCYAMINE/LIDOCAINE 45 ML BTL PO ONE (07:00)
[2018-05-22] MEDS ORDERED: ONDANSETRON 2MG/ML, 2ML ONE (07:14)
[2018-05-22] MEDS ORDERED: ONDANSETRON ODT 4 MG PO ONE (07:30)
[2018-05-22 07:31] LABS: BASOPHILS # (AUTO) 0.05 x10^3/uL (0-0.1); BASOPHILS % (AUTO) 1 % (0-1); EOSINOPHILS # (AUTO) 0.12 x10^3/uL (0-0.4); EOSINOPHILS % (AUTO) 2 % (1-7); LYMPHOCYTES # (AUTO) 1.75 x10^3/uL (1-3.4); LYMPHOCYTES % (AUTO) 27 % (22-44); MD NO; MEAN CORPUSCULAR HEMOGLOBIN 30.3 pg (27.0-34.8); MEAN CORPUSCULAR HGB CONC 33.6 g/dL (32.4-35.8); MEAN CORPUSCULAR VOLUME 90.3 fL (80-100); MEAN PLATELET VOLUME 7.9 fL (7.4-10.4); MONOCYTES # (AUTO) 0.44 x10^3/uL (0.2-0.8); MONOCYTES % (AUTO) 7 % (2-9); NEUTROPHILS # (AUTO) 4.04 x10^3/uL (1.8-6.8); NEUTROPHILS % (AUTO) 63 % (42-75); PLATELET COUNT 277 x10^3/uL (130-400); RED BLOOD COUNT 4.43 x10^6/uL (3.82-5.3); RED CELL DISTRIBUTION WIDTH 15.9 % (9.6-15.2)
[2018-05-22 07:43] LABS: ALANINE AMINOTRANSFERASE 54 U/L (12-78); ALBUMIN 3.7 g/dL (3.4-5.0); ANION GAP 6 mmol/L (5-15); CALCIUM 8.4 mg/dL (8.5-10.1); CHLORIDE 108 mmol/L (98-107)
[2018-05-22 07:48] LABS: ALKALINE PHOSPHATASE 68 U/L (45-117); BILIRUBIN,TOTAL 0.2 mg/dL (0.2-1.0); TOTAL PROTEIN 7.5 g/dL (6.4-8.2)
[2018-05-22 07:53] LABS: MICROSCOPIC NOT IND
[2018-05-22 08:00] LABS: CULTURE INDICATED? NO
[2018-05-22] MEDS ORDERED: CHLORDIAZEPOXIDE 25 MG CAPSULE ONE (10:40)
[2018-05-22] MEDS ORDERED: CHLORDIAZEPOXIDE 25 MG CAPSULE PO PRN (11:00)
[2018-05-22 11:26] VITALS: BP 128/78
== END 2018-05-22 11:35 | disposition home or self-care (01) ==
LOC: ED 11:02
DX: F10.20 Alcohol dependence, uncomplicated (principal); Y90.0 Blood alcohol level of less than 20 mg/100 ml; F19.10 Other psychoactive substance abuse, uncomplicated; Z72.9 Problem related to lifestyle, unspecified; I10 Essential (primary) hypertension; E11.9 Type 2 diabetes mellitus without complications; F17.200 Nicotine dependence, unspecified, uncomplicated; Z79.899 Other long term (current) drug therapy
CPT/HCPCS: 36415; 80053; 80307; 81003; 83690; 84703; 85025; 96374; 99285; J2060; J7030

== ENCOUNTER 2018-05-25 05:52 | Emergency (ER) | payer MEDICAID ==
[~2018-05-25] VITALS: Ht 154.9 cm; Wt 94.8 kg
[2018-05-25 05:53] VITALS: BP 129/80
[2018-05-25] MEDS ORDERED: LORazepam 1MG TABLET ONE (06:10)
[2018-05-25] MEDS ORDERED: MAALOX/HYOSCYAMINE/LIDOCAINE 45 ML BTL ONE (06:10)
[2018-05-25] MEDS ORDERED: IBUPROFEN 200 MG TABLET PO ONE (06:30)
[2018-05-25] MEDS ORDERED: MAALOX/HYOSCYAMINE/LIDOCAINE 45 ML BTL PO ONE (06:30)
[2018-05-25] MEDS ORDERED: LORazepam 1MG TABLET PO ONE (06:30)
[2018-05-25] MEDS ORDERED: IBUPROFEN 200 MG TABLET ONE (06:30)
== END 2018-05-25 06:56 | disposition home or self-care (01) ==
LOC: ED 06:50
DX: K29.20 Alcoholic gastritis without bleeding (principal); F10.220 Alcohol dependence with intoxication, uncomplicated; E11.9 Type 2 diabetes mellitus without complications; J45.909 Unspecified asthma, uncomplicated; F15.10 Other stimulant abuse, uncomplicated; I10 Essential (primary) hypertension; F32.9 Major depressive disorder, single episode, unspecified; F41.9 Anxiety disorder, unspecified; Y90.9 Presence of alcohol in blood, level not specified
CPT/HCPCS: 82962; 99284

== ENCOUNTER 2018-05-26 22:00 | Emergency (ER) | payer MEDICAID ==
[~2018-05-26] VITALS: Ht 154.9 cm; Wt 95.8 kg
[2018-05-26 22:03] VITALS: BP 100/66
== END 2018-05-26 22:38 | disposition home or self-care (01) ==
LOC: ED 22:18
DX: F41.1 Generalized anxiety disorder (principal); R07.89 Other chest pain
CPT/HCPCS: 93005; 99284

== ENCOUNTER 2018-05-31 05:59 | Emergency (ER) | payer MEDICAID ==
[~2018-05-31] VITALS: Ht 170.2 cm; Wt 120.0 kg
[2018-05-31 09:49] VITALS: BP 133/76
[2018-06-01] MEDS ORDERED: BUSP10TA PO (17:58)
[2018-06-01] MEDS ORDERED: QUET100T4 PO (17:58)
[2018-06-01] MEDS ORDERED: OMEP20TA62 PO (17:59)
[2018-06-01] MEDS ORDERED: HYDR50CA PO (18:01)
[2018-06-01] MEDS ORDERED: METO25TA35 PO (18:01)
[2018-06-03] MEDS ORDERED: DIVA500T2 PO (13:06)
[2018-06-03] MEDS ORDERED: PRAZ2CAP2 PO (13:06)
[2018-06-03] MEDS ORDERED: CITA20TA6 PO (13:06)
[2018-06-03] MEDS ORDERED: LISI-167 PO (13:06)
== END 2018-05-31 10:23 | disposition home or self-care (01) ==
LOC: ED 07:06
DX: F10.229 Alcohol dependence with intoxication, unspecified (principal); E11.9 Type 2 diabetes mellitus without complications; I10 Essential (primary) hypertension; J45.909 Unspecified asthma, uncomplicated; F32.9 Major depressive disorder, single episode, unspecified; F43.10 Post-traumatic stress disorder, unspecified; F15.10 Other stimulant abuse, uncomplicated; Y90.9 Presence of alcohol in blood, level not specified
CPT/HCPCS: 99283

== ENCOUNTER 2018-09-02 03:54 | Emergency (ER) | payer MEDICAID ==
[~2018-09-02] VITALS: Ht 154.9 cm; Wt 91.9 kg
[~2018-09-02 03:54] MED LIST changes: +BUSP10TA PO; +CITA20TA6 PO; +CLON0.5T11 PO; +DIVA-59 PO; +HYDR-3307 PO; +HYDR25TA11 PO; +HYDR50CA PO; +LISI-167 PO; +LORA-446 PO; +METF500T PO; +OMEP20TA62 PO; +PRAZ2CAP2 PO; +QUET100T PO; +QUET200T PO
[2018-09-02] MEDS ORDERED: CHLORDIAZEPOXIDE 25 MG CAPSULE ONE (05:26)
[2018-09-02] MEDS ORDERED: ONDANSETRON ODT 4 MG ONE (05:27)
[2018-09-02] MEDS ORDERED: FAMOTIDINE 20 MG TABLET PO ONE (05:30)
[2018-09-02] MEDS ORDERED: ONDANSETRON ODT 8 MG PO ONE (05:30)
[2018-09-02] MEDS ORDERED: CHLORDIAZEPOXIDE 25 MG CAPSULE PO ONE (05:30)
[2018-09-02] MEDS ORDERED: FAMOTIDINE 20 MG TABLET ONE (05:31)
[2018-09-02 06:25] LABS: BASOPHILS # (AUTO) 0.04 x10^3/uL (0-0.1); BASOPHILS % (AUTO) 1 % (0-1); EOSINOPHILS # (AUTO) 0.05 x10^3/uL (0-0.4); EOSINOPHILS % (AUTO) 1 % (1-7); LYMPHOCYTES # (AUTO) 1.91 x10^3/uL (1-3.4); LYMPHOCYTES % (AUTO) 21 % (22-44); MD NO; MEAN CORPUSCULAR HEMOGLOBIN 30.5 pg (27.0-34.8); MEAN CORPUSCULAR HGB CONC 33.8 g/dL (32.4-35.8); MEAN CORPUSCULAR VOLUME 90.2 fL (80-100); MEAN PLATELET VOLUME 7.6 fL (7.4-10.4); MONOCYTES # (AUTO) 0.69 x10^3/uL (0.2-0.8); MONOCYTES % (AUTO) 7 % (2-9); NEUTROPHILS % (AUTO) 71 % (42-75); PLATELET COUNT 324 x10^3/uL (130-400); RED BLOOD COUNT 4.99 x10^6/uL (3.82-5.3); RED CELL DISTRIBUTION WIDTH 15.3 % (9.6-15.2)
[2018-09-02 06:32] LABS: INTERNATIONAL NORMALIZED RATIO 1.03 (0.93-1.1); PROTHROMBIN TIME 10.6 Seconds (9.6-11.5)
[2018-09-02 06:36] LABS: ALANINE AMINOTRANSFERASE 32 U/L (12-78); ALBUMIN 3.9 g/dL (3.4-5.0); ANION GAP 13 mmol/L (5-15); CALCIUM 9.4 mg/dL (8.5-10.1); CHLORIDE 101 mmol/L (98-107); CREATININE 0.68 mg/dL (0.55-1.02)
[2018-09-02 06:38] LABS: ALKALINE PHOSPHATASE 71 U/L (45-117); BILIRUBIN,TOTAL 0.6 mg/dL (0.2-1.0)
[2018-09-02 06:58] LABS: MICROSCOPIC AUTO
[2018-09-02 07:07] LABS: CULTURE INDICATED? YES
[2018-09-02 07:09] LABS: SALICYLATE LEVEL 2.1 mg/dL (2.8-20.0)
[2018-09-02 07:10] VITALS: BP 101/54
[2018-09-02 07:26] LABS: ACETAMINOPHEN < 2 mcg/mL (10-30)
[2018-09-02 07:49] LABS: AMPHETAMINE SCREEN, URINE Positive (Negative); BARBITURATE SCREEN, URINE Negative (Negative); BENZODIAZEPINE SCREEN, URINE Negative (Negative); CANNABINOID SCREEN, URINE Negative (Negative); COCAINE SCREEN, URINE Negative (Negative); METHADONE SCREEN, URINE Negative (Negative); OPIATE SCREEN, URINE Negative (Negative)
== END 2018-09-02 09:02 | disposition home or self-care (01) ==
LOC: ED 06:03
DX: F15.10 Other stimulant abuse, uncomplicated (principal); F41.1 Generalized anxiety disorder; I10 Essential (primary) hypertension; F31.9 Bipolar disorder, unspecified; E11.9 Type 2 diabetes mellitus without complications; F17.200 Nicotine dependence, unspecified, uncomplicated
CPT/HCPCS: 36415; 80053; 80307; 80329; 81001; 83690; 84703; 85025; 85610; 87086; 99284; Q0162; G0480

== ENCOUNTER 2018-10-02 07:40 | Observation (INO) | payer MEDICAID ==
[~2018-10-02] VITALS: Ht 154.9 cm; Wt 80.0 kg
[2018-10-02] MEDS ORDERED: LORazepam 1MG TABLET ONE (08:25)
[2018-10-02] MEDS ORDERED: LORazepam 1MG TABLET PO ONE (08:30)
[2018-10-02 08:33] LABS: BASOPHILS # (AUTO) 0.06 x10^3/uL (0-0.1); BASOPHILS % (AUTO) 1 % (0-1); EOSINOPHILS # (AUTO) 0.16 x10^3/uL (0-0.4); EOSINOPHILS % (AUTO) 4 % (1-7); LYMPHOCYTES # (AUTO) 1.28 x10^3/uL (1-3.4); LYMPHOCYTES % (AUTO) 29 % (22-44); MD NO; MEAN CORPUSCULAR HEMOGLOBIN 30.2 pg (27.0-34.8); MEAN CORPUSCULAR HGB CONC 33.4 g/dL (32.4-35.8); MEAN CORPUSCULAR VOLUME 90.5 fL (80-100); MEAN PLATELET VOLUME 7.5 fL (7.4-10.4); MONOCYTES # (AUTO) 0.33 x10^3/uL (0.2-0.8); MONOCYTES % (AUTO) 8 % (2-9); NEUTROPHILS # (AUTO) 2.55 x10^3/uL (1.8-6.8); NEUTROPHILS % (AUTO) 58 % (42-75); PLATELET COUNT 256 x10^3/uL (130-400); RED BLOOD COUNT 4.44 x10^6/uL (3.82-5.3); RED CELL DISTRIBUTION WIDTH 15.5 % (9.6-15.2)
[2018-10-02 08:36] LABS: ALANINE AMINOTRANSFERASE 58 U/L (12-78); ALBUMIN 3.4 g/dL (3.4-5.0); ANION GAP 7 mmol/L (5-15); CALCIUM 8.2 mg/dL (8.5-10.1); CHLORIDE 108 mmol/L (98-107); SALICYLATE LEVEL 3.5 mg/dL (2.8-20.0)
[2018-10-02 08:38] LABS: ACETAMINOPHEN < 2 mcg/mL (10-30)
[2018-10-02 08:39] LABS: ALKALINE PHOSPHATASE 68 U/L (45-117); BILIRUBIN,TOTAL 0.2 mg/dL (0.2-1.0); CREATININE 0.55 mg/dL (0.55-1.02)
[2018-10-02 08:42] LABS: TROPONIN I < 0.015 ng/mL (0.000-0.045)
[2018-10-02 09:23] LABS: HCG UR SG 1.021 (1.003-1.030)
[2018-10-02 09:29] LABS: AMPHETAMINE SCREEN, URINE Positive (Negative); BARBITURATE SCREEN, URINE Negative (Negative); BENZODIAZEPINE SCREEN, URINE Positive (Negative); CANNABINOID SCREEN, URINE Negative (Negative); COCAINE SCREEN, URINE Negative (Negative); METHADONE SCREEN, URINE Negative (Negative); OPIATE SCREEN, URINE Negative (Negative)
[2018-10-02] MEDS ORDERED: ASPIRIN 325 MG TABLET PO ONE (09:30)
[2018-10-02] MEDS ORDERED: ASPIRIN 325 MG TABLET ONE (09:53)
[2018-10-02] MEDS ORDERED: ALBUTEROL SULFATE 2.5 MG/3 ML NEB PRN (15:00)
[2018-10-02] MEDS ORDERED: ACETAMINOPHEN 325 MG TABLET PO PRN (15:00)
[2018-10-02] MEDS ORDERED: ONDANSETRON ODT 4 MG PO PRN (15:00)
[2018-10-02] MEDS ORDERED: KETOROLAC 30 MG/1 ML IM PRN (15:00)
[2018-10-02] MEDS ORDERED: NICOTINE 14MG/24 HR PATCH.TD24 ONE (15:11)
[2018-10-02] MEDS: NICOTINE 14MG/24 HR PATCH.TD24 TD SCH (15:14)
[2018-10-02] MEDS: INSULIN REGULAR 100 UNITS/ML, 3ML VIAL SQ-INSULIN SCH ×2 (16:00→21:00)
[2018-10-02] MEDS: metFORMIN 500 MG TABLET PO SCH (17:18)
[2018-10-02 17:35] VITALS: BP 125/78
[2018-10-02 17:37] VITALS: BP 125/78
[2018-10-02] MEDS: LORazepam 1MG TABLET PO PRN (18:20)
[2018-10-02 20:00] VITALS: BP 145/73
[2018-10-02] MEDS ORDERED: PRAZOSIN 1 MG CAPSULE ONE (20:44)
[2018-10-02] MEDS: DIVALPROEX 250 MG TABLET.DR PO SCH (20:45)
[2018-10-02] MEDS: PRAZOSIN 2 MG CAPSULE PO SCH (20:45)
[2018-10-03] MEDS: metFORMIN 500 MG TABLET PO SCH ×2 (07:58→16:55)
[2018-10-03 08:05] VITALS: BP 117/77
[2018-10-03] MEDS: INSULIN REGULAR 100 UNITS/ML, 3ML VIAL SQ-INSULIN SCH ×4 (08:23→21:00)
[2018-10-03] MEDS: METOPROLOL TARTRATE 25 MG TABLET PO SCH (08:34)
[2018-10-03] MEDS: DIVALPROEX 250 MG TABLET.DR PO SCH ×2 (08:35→20:18)
[2018-10-03] MEDS: ASPIRIN 81 MG TABLET EC PO SCH (08:35)
[2018-10-03] MEDS: QUETIAPINE 100MG TABLET PO SCH (08:36)
[2018-10-03] MEDS: LISINOPRIL 10 MG TABLET PO SCH (08:36)
[2018-10-03] MEDS ORDERED: SITAGLIPTIN PHOSPHATE 25 MG PO SCH (09:00)
[2018-10-03] MEDS: LINAGLIPTIN 5 MG TAB PO SCH (09:48)
[2018-10-03 12:21] VITALS: BP 136/69
[2018-10-03] MEDS ORDERED: ALUMINUM/MAG/SIMETHICONE 30 ML UDC PO PRN (14:30)
[2018-10-03] MEDS: NICOTINE 14MG/24 HR PATCH.TD24 TD SCH (16:52)
[2018-10-03] MEDS ORDERED: PRAZOSIN 1 MG CAPSULE ONE (20:12)
[2018-10-03 20:14] VITALS: BP 99/66
[2018-10-03] MEDS: PRAZOSIN 2 MG CAPSULE PO SCH ×2 (20:17→21:00)
[2018-10-04 00:51] VITALS: BP 98/70
[2018-10-04 02:45] VITALS: BP 126/76
[2018-10-04] MEDS: INSULIN REGULAR 100 UNITS/ML, 3ML VIAL SQ-INSULIN SCH ×4 (07:00→21:15)
[2018-10-04] MEDS: LORazepam 1MG TABLET PO PRN ×2 (07:19→18:06)
[2018-10-04 08:00] VITALS: BP 127/85
[2018-10-04] MEDS: METOPROLOL TARTRATE 25 MG TABLET PO SCH (09:15)
[2018-10-04] MEDS: DIVALPROEX 250 MG TABLET.DR PO SCH ×2 (09:15→21:14)
[2018-10-04] MEDS: metFORMIN 500 MG TABLET PO SCH ×2 (09:15→16:57)
[2018-10-04] MEDS: LINAGLIPTIN 5 MG TAB PO SCH (09:16)
[2018-10-04] MEDS: ASPIRIN 81 MG TABLET EC PO SCH (09:16)
[2018-10-04] MEDS: QUETIAPINE 100MG TABLET PO SCH (09:16)
[2018-10-04] MEDS: LISINOPRIL 10 MG TABLET PO SCH (09:16)
[2018-10-04 13:47] VITALS: BP 109/73
[2018-10-04] MEDS: NICOTINE 14MG/24 HR PATCH.TD24 TD SCH (16:07)
[2018-10-04 19:51] VITALS: BP 128/92
[2018-10-04] MEDS: PRAZOSIN 2 MG CAPSULE PO SCH (21:15)
== END 2018-10-04 21:54 ==
LOC: ED 08:08 → EDIP 13:45 → 2N 15:30
PROVIDERS: ADMIT Family Medicine; ATTEND Family Medicine
DX: R45.851 Suicidal ideations (principal); F31.9 Bipolar disorder, unspecified; J45.909 Unspecified asthma, uncomplicated; F43.10 Post-traumatic stress disorder, unspecified; F41.1 Generalized anxiety disorder; E11.65 Type 2 diabetes mellitus with hyperglycemia; F10.10 Alcohol abuse, uncomplicated; I10 Essential (primary) hypertension; F15.10 Other stimulant abuse, uncomplicated; F60.3 Borderline personality disorder; F17.200 Nicotine dependence, unspecified, uncomplicated; Z79.4 Long term (current) use of insulin; Z91.14 Patient's other noncompliance with medication regimen
CPT/HCPCS: 36415; 80053; 80307; 80329; 81025; 82962; 84484; 85025; 93005; 99285; G0378; Q0177; G0480

== ENCOUNTER 2018-11-02 07:41 | Emergency (ER) | payer MEDICAID ==
[~2018-11-02] VITALS: Ht 154.9 cm; Wt 100.0 kg
[2018-11-02 08:24] LABS: PH, VENOUS 7.359 pH (7.320-7.420)
[2018-11-02 08:26] LABS: AMPHETAMINE SCREEN, URINE Positive (Negative); BARBITURATE SCREEN, URINE Positive (Negative); BENZODIAZEPINE SCREEN, URINE Negative (Negative); CANNABINOID SCREEN, URINE Negative (Negative); COCAINE SCREEN, URINE Negative (Negative); METHADONE SCREEN, URINE Negative (Negative); OPIATE SCREEN, URINE Negative (Negative)
[2018-11-02 08:26] LABS: BASOPHILS # (AUTO) 0.04 x10^3/uL (0-0.1); BASOPHILS % (AUTO) 0 % (0-1); EOSINOPHILS # (AUTO) 0.01 x10^3/uL (0-0.4); EOSINOPHILS % (AUTO) 0 % (1-7); LYMPHOCYTES # (AUTO) 1.61 x10^3/uL (1-3.4); LYMPHOCYTES % (AUTO) 20 % (22-44); MD NO; MEAN CORPUSCULAR HGB CONC 33.4 g/dL (32.4-35.8); MEAN CORPUSCULAR VOLUME 89.7 fL (80-100); MEAN PLATELET VOLUME 7.2 fL (7.4-10.4); MONOCYTES # (AUTO) 0.32 x10^3/uL (0.2-0.8); MONOCYTES % (AUTO) 4 % (2-9); NEUTROPHILS # (AUTO) 6.07 x10^3/uL (1.8-6.8); NEUTROPHILS % (AUTO) 76 % (42-75); PLATELET COUNT 312 x10^3/uL (130-400); RED BLOOD COUNT 4.92 x10^6/uL (3.82-5.3); RED CELL DISTRIBUTION WIDTH 15.6 % (9.6-15.2)
[2018-11-02 08:30] LABS: FIO2 ROOM AIR %
[2018-11-02] MEDS ORDERED: LORazepam 1MG TABLET PO ONE (08:30)
[2018-11-02 08:38] LABS: ALANINE AMINOTRANSFERASE 29 U/L (12-78); ALBUMIN 4.4 g/dL (3.4-5.0); ANION GAP 13 mmol/L (5-15); CALCIUM 8.7 mg/dL (8.5-10.1); CHLORIDE 98 mmol/L (98-107); CREATININE 0.57 mg/dL (0.55-1.02)
[2018-11-02 08:42] LABS: ALKALINE PHOSPHATASE 68 U/L (45-117); BILIRUBIN,TOTAL 0.2 mg/dL (0.2-1.0); TOTAL PROTEIN 8.4 g/dL (6.4-8.2)
[2018-11-02 08:53] LABS: ACETONE, SERUM Trace (10mg/dL) mg/dL (Negative)
[2018-11-02 09:00] VITALS: BP 141/86
== END 2018-11-02 10:02 | disposition left against medical advice (07) ==
LOC: ED 08:57
DX: R10.31 Right lower quadrant pain (principal); R00.0 Tachycardia, unspecified; F10.10 Alcohol abuse, uncomplicated; F15.10 Other stimulant abuse, uncomplicated; I10 Essential (primary) hypertension; E11.9 Type 2 diabetes mellitus without complications
CPT/HCPCS: 36415; 80053; 80307; 82010; 82803; 84703; 85025; 93005; 99284

== ENCOUNTER 2018-11-03 09:59 | Emergency (ER) | payer MEDICAID ==
[~2018-11-03] VITALS: Ht 154.9 cm; Wt 66.0 kg
[2018-11-03] MEDS ORDERED: IBUPROFEN 200 MG TABLET PO ONE (10:30)
[2018-11-03] MEDS ORDERED: IBUPROFEN 200 MG TABLET ONE (10:45)
[2018-11-03] MEDS ORDERED: CHLORDIAZEPOXIDE 10 MG CAPSULE ONE (13:23)
[2018-11-03] MEDS ORDERED: CHLORDIAZEPOXIDE 10 MG CAPSULE PO PRN (13:30)
[2018-11-03 13:45] VITALS: BP 120/60
[2018-11-03 13:58] LABS: BASOPHILS # (AUTO) 0.07 x10^3/uL (0-0.1); BASOPHILS % (AUTO) 1 % (0-1); EOSINOPHILS # (AUTO) 0.01 x10^3/uL (0-0.4); EOSINOPHILS % (AUTO) 0 % (1-7); LYMPHOCYTES # (AUTO) 1.77 x10^3/uL (1-3.4); LYMPHOCYTES % (AUTO) 23 % (22-44); MD NO; MEAN CORPUSCULAR HGB CONC 33.7 g/dL (32.4-35.8); MEAN CORPUSCULAR VOLUME 89.2 fL (80-100); MEAN PLATELET VOLUME 7.3 fL (7.4-10.4); MONOCYTES # (AUTO) 0.61 x10^3/uL (0.2-0.8); MONOCYTES % (AUTO) 8 % (2-9); NEUTROPHILS # (AUTO) 5.34 x10^3/uL (1.8-6.8); NEUTROPHILS % (AUTO) 69 % (42-75); PLATELET COUNT 293 x10^3/uL (130-400); RED BLOOD COUNT 4.42 x10^6/uL (3.82-5.3); RED CELL DISTRIBUTION WIDTH 15.5 % (9.6-15.2)
[2018-11-03 14:03] LABS: ALBUMIN 3.9 g/dL (3.4-5.0); ANION GAP 16 mmol/L (5-15); CALCIUM 8.6 mg/dL (8.5-10.1); CHLORIDE 100 mmol/L (98-107)
[2018-11-03 14:13] LABS: ACETAMINOPHEN < 2 mcg/mL (10-30); ALANINE AMINOTRANSFERASE 39 U/L (12-78); ALKALINE PHOSPHATASE 77 U/L (45-117); BILIRUBIN,TOTAL 0.3 mg/dL (0.2-1.0); CREATININE 1.02 mg/dL (0.55-1.02); TOTAL PROTEIN 7.5 g/dL (6.4-8.2)
== END 2018-11-03 16:49 | disposition home or self-care (01) ==
LOC: ED 10:52
DX: F10.129 Alcohol abuse with intoxication, unspecified (principal); Z76.5 Malingerer [conscious simulation]; E11.9 Type 2 diabetes mellitus without complications; I10 Essential (primary) hypertension; F43.10 Post-traumatic stress disorder, unspecified; F32.9 Major depressive disorder, single episode, unspecified; Z72.9 Problem related to lifestyle, unspecified
CPT/HCPCS: 36415; 80053; 80307; 80329; 83690; 85025; 99283; G0480

== ENCOUNTER 2018-12-23 12:05 | Emergency (ER) | payer MEDICAID ==
[~2018-12-23] VITALS: Ht 154.9 cm; Wt 93.0 kg
[2018-12-23 12:11] VITALS: BP 105/58
--- NOTE | 2018-12-23 12:21 | NUR ---
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 MULTIPLE C/O PAIN TO VARIOUS BODY PARTS. CURRENTLY STATES FOOT PAIN IS WORSE THAN ABD PAIN. RESP EVEN & UNLABORED, OCC COUGH NOTED, SPEECH SLIGHTLY SLURRED, SKIN P/W/D. PT STATES EMS PICKED HER UP OUTSIDE THE [facility]. OBSERVED PT REACHING OVERHEAD TO LOWER HOB MULTIPLE TIMES. LMP: UNKOWN. PT STATES SHE WORKS IN [place]; "WHEN I'M THERE, THEY GIVE ME NORCO" (LAST DOSE: UNKOWN). STATES SHE TAKES MULTIPLE MEDICATIONS, BUT THEY WERE STOLEN LAST NIGHT.
--- NOTE | 2018-12-23 12:39 | NUR ---
PT AMBULATORY TO & FROM [facility] W/OUT INCIDENT; GAIT STEADY; VOIDED SPECIMEN PROVIDED.
--- NOTE | 2018-12-23 12:50 | NUR ---
PT OBSERVED WALKING AROUND ED ROOM 28 W/OUT DIFFICULTY.
[2018-12-23 12:51] LABS: BASOPHILS # (AUTO) 0.05 x10^3/uL (0-0.1); BASOPHILS % (AUTO) 1 % (0-1); EOSINOPHILS # (AUTO) 0.15 x10^3/uL (0-0.4); EOSINOPHILS % (AUTO) 2 % (1-7); LYMPHOCYTES # (AUTO) 1.48 x10^3/uL (1-3.4); LYMPHOCYTES % (AUTO) 23 % (22-44); MD NO; MEAN CORPUSCULAR HEMOGLOBIN 30.3 pg (27.0-34.8); MEAN CORPUSCULAR VOLUME 89.3 fL (80-100); MEAN PLATELET VOLUME 7.5 fL (7.4-10.4); MONOCYTES % (AUTO) 8 % (2-9); NEUTROPHILS # (AUTO) 4.31 x10^3/uL (1.8-6.8); NEUTROPHILS % (AUTO) 67 % (42-75); PLATELET COUNT 291 x10^3/uL (130-400); RED BLOOD COUNT 4.65 x10^6/uL (3.82-5.3)
[2018-12-23 13:01] LABS: ALANINE AMINOTRANSFERASE 40 U/L (12-78); ALBUMIN 3.8 g/dL (3.4-5.0); ANION GAP 10 mmol/L (5-15); CALCIUM 8.6 mg/dL (8.5-10.1); CHLORIDE 105 mmol/L (98-107); CREATININE 0.67 mg/dL (0.55-1.02)
[2018-12-23 13:01] LABS: HCG UR SG 1.023 (1.003-1.030)
[2018-12-23 13:02] LABS: MICROSCOPIC INDICATED
[2018-12-23 13:03] LABS: ALKALINE PHOSPHATASE 73 U/L (45-117); BILIRUBIN,TOTAL 0.3 mg/dL (0.2-1.0); TOTAL PROTEIN 7.3 g/dL (6.4-8.2)
[2018-12-23 13:14] LABS: CULTURE INDICATED? NO
--- NOTE | 2018-12-23 13:15 | NUR ---
MED REC COMPLETED W/ MEDS REPORTED BY PT AND USING EXTERNAL MED HX. PT IS A POOR MEDICATION HISTORIAN
[2018-12-23] MEDS ORDERED: DEXT10TA22 PO (13:21)
[2018-12-23] MEDS ORDERED: SITA25TA PO (13:21)
[2018-12-23] MEDS ORDERED: DIVA500T2 PO (13:21)
[2018-12-23] MEDS ORDERED: QUET300T5 PO (13:21)
[2018-12-23] MEDS ORDERED: HYDR-3307 PO (13:21)
[2018-12-23] MEDS ORDERED: HYDR25CA94 PO (13:28)
[2018-12-23] MEDS ORDERED: METF850T10 PO (13:28)
[2018-12-23] MEDS ORDERED: ATOR20TA86 PO (13:28)
[2018-12-23] MEDS ORDERED: ZOLP-413 PO (13:28)
[2018-12-23] MEDS ORDERED: ALBU18HF INH (13:28)
--- NOTE | 2018-12-23 13:29 | NUR ---
PT AMBULATORY TO & FROM [facility] W/OUT INCIDENT; GAIT STEADY. PT REQUESTING FOOD & BEVERAGE. AMBULATORY TO [facility] W/OUT INCIDENT.
--- NOTE | 2018-12-23 13:40 | NUR ---
PT RETURNED TO ED ROOM W/OUT INCIDENT. DIET SPRITE & SALTINES PROVIDED.
--- NOTE | 2018-12-23 13:44 | NUR ---
MAULIK HOWARD Addendum: 12/23/18 at 1444 by THANH ACCOMPANIED BY THIS RN. PT'S GOWN IS ON BACKWARDS; PT COVERED W/ BLANKET.
--- NOTE | 2018-12-23 13:47 | NUR ---
PT AMBULATORY TO [facility]. PT'S GOWN ON BACKWARDS, PT HAS BLANKET WRAPPED AROUND HER SHOULDERS. PT AWARE OF PENDING DC. PT NOW AMBULATORY TO RN DESK; STATES I NEED TO BE TRANSFERRED TO [facility], THE BEVERAGE DISTILLER SAID I HAVE TO CHECK MYSELF IN. PT ALSO ASKED FOR ANOTHER ERP "TO ORDER ANOTHER X-RAY OF MY FOOT, BISMARK WHERE IT HURTS, I CAN'T WALK ON IT" (PT HAD C/O PAIN W/ PALPATION OF TOP OF MID-FOOT; SKIN INTACT, NO SWELLING/DISCOLORATION NOTED). ERP WILL BE NOTIFIED.
[2018-12-23] MEDS ORDERED: IBUPROFEN 200 MG TABLET ONE (13:54)
--- NOTE | 2018-12-23 13:57 | NUR ---
MOTRIN 400MG PO GIVEN. [facility] NOT ACCEPTING SCAN. PT IS DRESSED FOR DC. PT REQUESTING FLU SHOT - DENIED. INSTRUCTED TO FOLLOW-UP W/ HOPES PER DC DOCUMENT. PT REQUESTING SOCKS - WILL BE PROVIDED.
[2018-12-23] MEDS ORDERED: IBUPROFEN 200 MG TABLET PO ONE (14:00)
== END 2018-12-23 14:14 | disposition home or self-care (01) ==
LOC: ED 12:20
DX: S39.012A Strain of muscle, fascia and tendon of lower back, initial encounter (principal); K59.00 Constipation, unspecified; Z72.9 Problem related to lifestyle, unspecified; Z59.0 Homelessness; I10 Essential (primary) hypertension; E11.9 Type 2 diabetes mellitus without complications; F31.9 Bipolar disorder, unspecified; J45.909 Unspecified asthma, uncomplicated; X58.XXXA Exposure to other specified factors, initial encounter; Y93.89 Activity, other specified; Y92.89 Other specified places as the place of occurrence of the external cause; Y99.8 Other external cause status
CPT/HCPCS: 36415; 76700; 80053; 80307; 81001; 81025; 83690; 85025; 99284

== ENCOUNTER 2019-01-03 22:13 | Emergency (ER) | payer MEDICAID ==
[~2019-01-03] VITALS: Ht 154.9 cm; Wt 98.0 kg
[~2019-01-03 22:13] MED LIST changes: +ALBU18HF INH; +ATOR20TA86 PO; +DEXT10TA22 PO; +HYDR25CA94 PO; +METF850T10 PO; +QUET300T5 PO; +SITA25TA PO; +ZOLP-413 PO
[2019-01-03] MEDS ORDERED: KETOROLAC 30 MG/1 ML ONE (22:29)
[2019-01-03] MEDS ORDERED: KETOROLAC 30 MG/1 ML IVPush ONE (22:30)
--- NOTE | 2019-01-03 22:31 | NUR ---
XRAY IN ROOM NOW
[2019-01-03 22:35] LABS: BASOPHILS # (AUTO) 0.03 x10^3/uL (0-0.1); BASOPHILS % (AUTO) 0 % (0-1); EOSINOPHILS # (AUTO) 0.04 x10^3/uL (0-0.4); EOSINOPHILS % (AUTO) 1 % (1-7); LYMPHOCYTES # (AUTO) 1.37 x10^3/uL (1-3.4); LYMPHOCYTES % (AUTO) 18 % (22-44); MD NO; MEAN CORPUSCULAR HEMOGLOBIN 30.2 pg (27.0-34.8); MEAN CORPUSCULAR HGB CONC 33.9 g/dL (32.4-35.8); MEAN CORPUSCULAR VOLUME 89.1 fL (80-100); MEAN PLATELET VOLUME 7.8 fL (7.4-10.4); MONOCYTES # (AUTO) 0.43 x10^3/uL (0.2-0.8); MONOCYTES % (AUTO) 6 % (2-9); NEUTROPHILS # (AUTO) 5.83 x10^3/uL (1.8-6.8); NEUTROPHILS % (AUTO) 76 % (42-75); PLATELET COUNT 253 x10^3/uL (130-400); RED BLOOD COUNT 4.56 x10^6/uL (3.82-5.3); RED CELL DISTRIBUTION WIDTH 15.1 % (9.6-15.2)
--- NOTE | 2019-01-03 22:35 | NUR ---
PT MEDICATED PER [facility]. PT TOLERATED WELL. PT'S AOX4. RESPS EVEN AND UNLABORED. ALL MONITORS IN PLACE. CALL LIGHT WITHIN REACH.
[2019-01-03 22:41] VITALS: BP 106/71
[2019-01-03 22:46] LABS: ALANINE AMINOTRANSFERASE 38 U/L (12-78); ALBUMIN 3.9 g/dL (3.4-5.0); ANION GAP 11 mmol/L (5-15); CALCIUM 8.5 mg/dL (8.5-10.1); CHLORIDE 99 mmol/L (98-107); CREATININE 0.63 mg/dL (0.55-1.02)
[2019-01-03 22:50] LABS: ALKALINE PHOSPHATASE 76 U/L (45-117); BILIRUBIN,TOTAL 0.7 mg/dL (0.2-1.0); TOTAL PROTEIN 7.5 g/dL (6.4-8.2); TROPONIN I < 0.015 ng/mL (0.000-0.045)
--- NOTE | 2019-01-03 23:14 | NUR ---
PT GIVEN DC INSTRUCTIONS. PT AMB TO DC WITH STEADY GAIT. PT'S AOX4. RESPS EVEN AND UNLABORED. NO ACUTE DISTRESS AT DC.
== END 2019-01-03 23:07 | disposition home or self-care (01) ==
LOC: ED 22:37
DX: R07.89 Other chest pain (principal); E11.9 Type 2 diabetes mellitus without complications; R05 Cough; I10 Essential (primary) hypertension
CPT/HCPCS: 36415; 71045; 80053; 84484; 85025; 93005; 96374; 99284; J1885

== ENCOUNTER 2019-01-07 08:15 | Emergency (ER) | payer MEDICAID ==
[~2019-01-07] VITALS: Ht 154.9 cm; Wt 98.0 kg
[2019-01-07] MEDS ORDERED: ALBUTEROL/IPRATROPIUM 2.5MG/0.5MG, 3 ML NEB ONE (08:30)
--- NOTE | 2019-01-07 08:32 | NUR ---
Pt BIB [facility] for medication refill of Albuterol, ASA, Ativan, Depakote, Januvia, Lisinopril, Lopressor, Novolog, Vistaril, and Ambien. Reports having CP that is diffuse and increases with touch. Pain is an 8 on the pain scale. Pt was given 200ml NS, 324 ASA, 0.4 Nitro, and 4 mg Zofran and her pain decreased to a 5 on the pain scale. Pt has had a cough for 1 week. FS 223, BP 127/79, 96% RA, RR 16. PA at bedside.
--- NOTE | 2019-01-07 08:32 | NUR ---
Pt taken to X Ray.
[2019-01-07] MEDS ORDERED: ALBUTEROL/IPRATROPIUM 2.5MG/0.5MG, 3 ML ONE (08:40)
--- NOTE | 2019-01-07 08:45 | NUR ---
Pt stated that she has pneumonia, an eye infection, and pain all over her body. Pt requesting pain medication, ativan, and BP medication. Informed PA. RT at bedside.
[2019-01-07] MEDS ORDERED: IBUPROFEN 200 MG TABLET ONE (08:47)
[2019-01-07] MEDS ORDERED: ACETAMINOPHEN 325 MG TABLET ONE (08:47)
--- NOTE | 2019-01-07 08:50 | NUR ---
Dropped 60 mg of prednisone on the floor. Wasted med and pulled 60 mg of prednisone again.
--- NOTE | 2019-01-07 08:59 | NUR ---
lab at bedside.
[2019-01-07] MEDS ORDERED: IBUPROFEN 200 MG TABLET PO ONE (09:00)
[2019-01-07] MEDS ORDERED: ACETAMINOPHEN 325 MG TABLET PO ONE (09:00)
--- NOTE | 2019-01-07 09:05 | NUR ---
pt refusing blood, PA informed.
--- NOTE | 2019-01-07 09:29 | NUR ---
Pt keeps taking off monitoring equipment.
[2019-01-07 09:30] VITALS: BP 139/79
--- NOTE | 2019-01-07 10:14 | NUR ---
PT SIGNED D/C PAPERS. PT STATED GIVE ME A MINUTES AND LAYS BACK IN THE BED.
--- NOTE | 2019-01-07 10:22 | NUR ---
TOLD PT THAT SHE NEEDS TO GET UP AND GET DRESSED AND THAT WE NEED THE ROOM FOR OTHER PATIENTS. PT SAT UP AND SAID OKAY. CURTAIN PULLED SO PT CAN GET DRESSED.
--- NOTE | 2019-01-07 10:32 | NUR ---
PT IS DEMANDING TO THE THE PROVIDER. SHE STATED THAT SHE NEEDS A DOSE OF ATIVAN AND VISTERIL. EXPLAINED TO THE PT THAT THE PROVIDER WILL NOT GIVE HER THOES MEDICATIONS. PT IS DEMANDING TO SEE THE PROVIDER. PROVIDER INFORMED. SHE STATED THAT SHE WILL GO SEE THE PT.
--- NOTE | 2019-01-07 10:41 | NUR ---
PA SPOKE TO PT AND TOLD HER SHE HAS BEEN EVALUATED FOR HER COMPLAINT AND SHE IS NOT GETTING ANYTHING ELSE.
--- NOTE | 2019-01-07 10:51 | NUR ---
Patient given discharge instructions and they have confirmed that they understand the instructions. Patient ambulatory with steady gait.
--- NOTE | 2019-01-07 10:52 | NUR ---
PT NOW AT THE CHECK OUT DESK REQUESTING WATER AND A CRACKER.
== END 2019-01-07 10:55 | disposition home or self-care (01) ==
LOC: ED 09:40
DX: J06.9 Acute upper respiratory infection, unspecified (principal); J45.909 Unspecified asthma, uncomplicated; E11.9 Type 2 diabetes mellitus without complications; F43.10 Post-traumatic stress disorder, unspecified; I10 Essential (primary) hypertension; F31.9 Bipolar disorder, unspecified; Z88.2 Allergy status to sulfonamides
CPT/HCPCS: 71046; 93005; 94640; 99284; J7512; J7620

== ENCOUNTER 2019-01-11 10:23 | Observation (INO) | payer MEDICAID ==
[~2019-01-11] VITALS: Ht 154.9 cm; Wt 97.7 kg
[2019-01-11] MEDS ORDERED: DIVA500T2 PO (11:03)
[2019-01-11] MEDS ORDERED: ATOR20TA37 PO (11:03)
[2019-01-11] MEDS ORDERED: HYDR50CA PO (11:03)
[2019-01-11] MEDS ORDERED: METF500T17 PO (11:03)
[2019-01-11] MEDS ORDERED: METO25TA35 PO (11:03)
[2019-01-11] MEDS ORDERED: SITA25TA PO (11:03)
[2019-01-11] MEDS ORDERED: QUET200T4 PO (11:03)
[2019-01-11] MEDS ORDERED: LORA-446 PO (11:03)
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
--- NOTE | 2019-01-11 11:36 | NUR ---
Patient states that she unable to provide urine sample at this time.
[2019-01-11 12:01] LABS: BASOPHILS # (AUTO) 0.02 x10^3/uL (0-0.1); BASOPHILS % (AUTO) 0 % (0-1); EOSINOPHILS # (AUTO) 0.08 x10^3/uL (0-0.4); EOSINOPHILS % (AUTO) 1 % (1-7); LYMPHOCYTES # (AUTO) 1.41 x10^3/uL (1-3.4); LYMPHOCYTES % (AUTO) 17 % (22-44); MD NO; MEAN CORPUSCULAR HEMOGLOBIN 29.7 pg (27.0-34.8); MEAN CORPUSCULAR HGB CONC 33.1 g/dL (32.4-35.8); MEAN CORPUSCULAR VOLUME 89.7 fL (80-100); MEAN PLATELET VOLUME 7.3 fL (7.4-10.4); MONOCYTES # (AUTO) 0.35 x10^3/uL (0.2-0.8); MONOCYTES % (AUTO) 4 % (2-9); NEUTROPHILS # (AUTO) 6.33 x10^3/uL (1.8-6.8); NEUTROPHILS % (AUTO) 77 % (42-75); PLATELET COUNT 237 x10^3/uL (130-400); RED BLOOD COUNT 4.64 x10^6/uL (3.82-5.3); RED CELL DISTRIBUTION WIDTH 14.8 % (9.6-15.2)
[2019-01-11 12:07] LABS: MICROSCOPIC AUTO
[2019-01-11 12:08] LABS: CULTURE INDICATED? YES
[2019-01-11 12:11] LABS: ALANINE AMINOTRANSFERASE 42 U/L (12-78); ALBUMIN 3.4 g/dL (3.4-5.0); ANION GAP 9 mmol/L (5-15); CHLORIDE 102 mmol/L (98-107); CREATININE 0.57 mg/dL (0.55-1.02); SALICYLATE LEVEL 3.9 mg/dL (2.8-20.0)
[2019-01-11 12:15] LABS: ALKALINE PHOSPHATASE 90 U/L (45-117); BILIRUBIN,TOTAL 0.3 mg/dL (0.2-1.0); TOTAL PROTEIN 7.3 g/dL (6.4-8.2)
[2019-01-11 12:15] LABS: AMPHETAMINE SCREEN, URINE Positive (Negative); BARBITURATE SCREEN, URINE Negative (Negative); BENZODIAZEPINE SCREEN, URINE Negative (Negative); CANNABINOID SCREEN, URINE Negative (Negative); COCAINE SCREEN, URINE Negative (Negative); METHADONE SCREEN, URINE Negative (Negative); OPIATE SCREEN, URINE Negative (Negative)
[2019-01-11 12:17] LABS: ACETAMINOPHEN < 2 mcg/mL (10-30)
[2019-01-11] MEDS ORDERED: DIVALPROEX 500 MG TABLET.DR ONE (12:41)
[2019-01-11] MEDS ORDERED: QUETIAPINE 100MG TABLET ONE (12:41)
[2019-01-11] MEDS ORDERED: METOPROLOL TARTRATE 25 MG TABLET ONE (12:41)
[2019-01-11] MEDS ORDERED: LORazepam 1MG TABLET ONE (12:42)
[2019-01-11] MEDS: DIVALPROEX 500 MG TABLET.DR PO SCH ×2 (12:47→21:00)
[2019-01-11] MEDS: metFORMIN 500 MG TABLET PO SCH ×2 (12:47→21:00)
[2019-01-11] MEDS: LORazepam 1MG TABLET PO SCH ×2 (12:47→21:00)
[2019-01-11] MEDS: METOPROLOL TARTRATE 25 MG TABLET PO SCH ×2 (12:48→21:00)
[2019-01-11] MEDS: HYDROXYZINE PAMOATE 50MG CAP PO SCH ×2 (12:48→21:00)
[2019-01-11] MEDS: QUETIAPINE 200 MG TABLET PO SCH ×2 (12:48→21:00)
[2019-01-11] MEDS ORDERED: POLYETHYLENE GLYCOL 17 GM PACKET PO PRN (13:30)
[2019-01-11] MEDS ORDERED: ACETAMINOPHEN 325 MG TABLET PO PRN (13:30)
[2019-01-11] MEDS ORDERED: BISACODYL 10 MG SUPP PR PRN (13:30)
[2019-01-11] MEDS ORDERED: DOCUSATE 100 MG CAPSULE PO PRN (13:30)
[2019-01-11] MEDS ORDERED: LORazepam 1MG TABLET PO PRN (13:30)
[2019-01-11] MEDS ORDERED: ONDANSETRON ODT 4 MG PO PRN (13:30)
[2019-01-11] MEDS ORDERED: KETOROLAC 30 MG/1 ML IM PRN (13:30)
--- NOTE | 2019-01-11 14:15 | NUR ---
Patient is mostly sleeping, ate 100% of lunch tray, oriented and appropriate. Patient aroused for vital signs and flu swab, tolerated. Plan of care updated.
[2019-01-11 14:35] LABS: RAPID INFLUENZA A Negative (Negative); RAPID INFLUENZA B Negative (Negative)
--- NOTE | 2019-01-11 15:55 | NUR ---
Report to KOFI Garcia
--- NOTE | 2019-01-11 16:56 | NUR ---
[facility] AT BEDSIDE, PT TOO SLEEPY TO COMPLETE ASSESSMENT. WILL ATTEMPT TO CALL BEFORE 2300 TO COMPLETE ASSESSMENT. THROUGHPUT AWARE
--- NOTE | 2019-01-11 17:54 | NUR ---
report given to ricardo rodriguez
--- NOTE | 2019-01-11 17:58 | NUR ---
WHEN PT IS MORE AWAKE CALL [facility] [phone] FOR ASSESSMENT.
--- NOTE | 2019-01-11 18:00 | NUR ---
Received SBAR report from KOFI Garcia the pt will go to room 261
[2019-01-11 18:24] VITALS: BP 88/57
[2019-01-11 19:13] VITALS: BP 102/69
[2019-01-11] MEDS: ACYCLOVIR 200 MG CAPSULE PO SCH (21:00)
[2019-01-11] MEDS ORDERED: ATORVASTATIN 20 MG TABLET PO SCH (21:00)
[2019-01-12 08:32] VITALS: BP 107/67
[2019-01-12] MEDS ORDERED: [UNRECOGNIZED DRUG - OTHER] PO SCH (09:00)
[2019-01-12] MEDS ORDERED: AMPHETAMINE PO SCH (09:00)
[2019-01-12] MEDS ORDERED: ACYC-113 PO (09:00)
[2019-01-12] MEDS ORDERED: DEXTROAMPHETAMINE PO SCH (09:00)
[2019-01-12] MEDS ORDERED: SITAGLIPTIN PHOSPHATE 25 MG PO SCH (09:00)
[2019-01-12] MEDS ORDERED: ASPIRIN 81 MG TABLET EC PO SCH (09:00)
[2019-01-12] MEDS: DIVALPROEX 500 MG TABLET.DR PO SCH (09:26)
[2019-01-12] MEDS: metFORMIN 500 MG TABLET PO SCH (09:26)
[2019-01-12] MEDS: ACYCLOVIR 200 MG CAPSULE PO SCH ×2 (09:29→16:27)
[2019-01-12] MEDS: METOPROLOL TARTRATE 25 MG TABLET PO SCH (09:30)
[2019-01-12 16:06] VITALS: BP 124/82
[2019-01-12] MEDS ORDERED: QUETIAPINE 100MG TABLET PO SCH (21:00)
[2019-01-13] MEDS ORDERED: LINAGLIPTIN 5 MG TAB PO SCH (09:00)
== END 2019-01-12 17:40 ==
LOC: ED 11:36 → EDIP 12:50 → 2N 18:08
PROVIDERS: ADMIT Internal Medicine; ATTEND Internal Medicine
DX: R45.851 Suicidal ideations (principal); B00.1 Herpesviral vesicular dermatitis; E11.9 Type 2 diabetes mellitus without complications; F17.210 Nicotine dependence, cigarettes, uncomplicated; F31.9 Bipolar disorder, unspecified; I10 Essential (primary) hypertension; F41.9 Anxiety disorder, unspecified; J11.1 Influenza due to unidentified influenza virus with other respiratory manifestations; Z79.4 Long term (current) use of insulin; Z91.14 Patient's other noncompliance with medication regimen
CPT/HCPCS: 36415; 71045; 80053; 80307; 80329; 81001; 82962; 84703; 85025; 87086; 87400; 93005; 96372; 99284; G0378; J1885; G0480

== ENCOUNTER 2019-04-24 04:48 | Emergency (ER) | payer MEDICAID ==
[~2019-04-24] VITALS: Ht 154.9 cm; Wt 91.0 kg
[~2019-04-24 04:48] MED LIST changes: +ACYC-113 PO; +AMPH10CA6 PO; +ATOR20TA37 PO; +CLON0.5T20 PO; +INSU100C5 SQ-INSULIN; +LISI5TAB7 PO; +Librium PO; +MELO15TA6 PO; +METF500T17 PO; +QUET200T4 PO; +TRAZ-137 PO
[2019-04-24] MEDS ORDERED: SODIUM CHLORIDE 0.9% 1,000ML IVBOLUS ONE (05:00)
--- NOTE | 2019-04-24 05:04 | NUR ---
CARID[facility]. REPORT RECEIVED FROM EMS. +ETOH. SI. PT HAS TACHY RATE 140'S HERE. PT C/O ABD PAIN/DUONG/N WELL. PT'S AOX4. RESPS EVEN AND UNLABORED. ALL MONITORS IN PLACE. CALL LIGHT WITHIN REACH. PA AT BEDSIDE TO ASSESS AT THIS TIME.
--- NOTE | 2019-04-24 05:12 | NUR ---
PT AMB TO BR AND BACK TO ROOM WITH STEADY GAIT.
--- NOTE | 2019-04-24 05:21 | NUR ---
NS INFUSING NOW.
--- NOTE | 2019-04-24 05:29 | NUR ---
PT PROVIDED SOME WATER. PA NOTIFIED.
[2019-04-24] MEDS ORDERED: LORazepam 1MG TABLET PO ONE ×3 (05:30→16:30)
[2019-04-24] MEDS ORDERED: LORazepam 1MG TABLET ONE ×2 (05:41→16:15)
[2019-04-24 05:49] LABS: AMPHETAMINE SCREEN, URINE Positive (Negative); BARBITURATE SCREEN, URINE Negative (Negative); BENZODIAZEPINE SCREEN, URINE Negative (Negative); CANNABINOID SCREEN, URINE Negative (Negative); COCAINE SCREEN, URINE Negative (Negative); METHADONE SCREEN, URINE Negative (Negative); OPIATE SCREEN, URINE Negative (Negative)
--- NOTE | 2019-04-24 05:54 | NUR ---
PT MEDICATED PER EM[facility]. PT TOLERATED WELL. PT'S AOX4. RESPS EVEN AND UNLABORED.
--- NOTE | 2019-04-24 06:17 | NUR ---
PT'S BELONGGINGS PUT INTO 1 BAG AND PUT INTO LOCKER.
[2019-04-24 06:19] LABS: BASOPHILS # (AUTO) 0.02 x10^3/uL (0-0.1); BASOPHILS % (AUTO) 0 % (0-1); EOSINOPHILS % (AUTO) 0 % (1-7); LYMPHOCYTES # (AUTO) 1.82 x10^3/uL (1-3.4); LYMPHOCYTES % (AUTO) 19 % (22-44); MD NO; MEAN CORPUSCULAR HEMOGLOBIN 30.6 pg (27.0-34.8); MEAN CORPUSCULAR HGB CONC 32.8 g/dL (32.4-35.8); MEAN CORPUSCULAR VOLUME 93.4 fL (80-100); MONOCYTES # (AUTO) 0.57 x10^3/uL (0.2-0.8); MONOCYTES % (AUTO) 6 % (2-9); NEUTROPHILS # (AUTO) 7.02 x10^3/uL (1.8-6.8); NEUTROPHILS % (AUTO) 74 % (42-75); PLATELET COUNT 278 x10^3/uL (130-400); RED BLOOD COUNT 4.82 x10^6/uL (3.82-5.3)
[2019-04-24 06:31] LABS: ALBUMIN 4.3 g/dL (3.4-5.0); ANION GAP 19 mmol/L (5-15); CALCIUM 9.1 mg/dL (8.5-10.1); CHLORIDE 105 mmol/L (98-107); CREATININE 0.78 mg/dL (0.55-1.02); SALICYLATE LEVEL 3.3 mg/dL (2.8-20.0)
[2019-04-24 06:36] LABS: ALKALINE PHOSPHATASE 65 U/L (45-117); BILIRUBIN,TOTAL 0.2 mg/dL (0.2-1.0); TOTAL PROTEIN 8.3 g/dL (6.4-8.2)
[2019-04-24 06:39] LABS: ACETAMINOPHEN < 2 mcg/mL (10-30); ALANINE AMINOTRANSFERASE 44 U/L (12-78)
--- NOTE | 2019-04-24 06:51 | NUR ---
REPORT GIVEN TO JADEN KIRBY.
[2019-04-24] MEDS ORDERED: ZIPRASIDONE 20 MG INJ IM ONE ×3 (07:00→07:43)
[2019-04-24] MEDS ORDERED: LORazepam 2 MG/ML, 1ML IM ONE (07:00)
[2019-04-24] MEDS ORDERED: LORazepam 2 MG/ML, 1ML ONE ×3 (07:00→16:09)
[2019-04-24] MEDS ORDERED: LORazepam 2 MG/ML, 1ML IVPush ONE ×2 (07:00→13:30)
[2019-04-24 08:17] LABS: FREE T4 (FREE THYROXINE) 0.67 ng/dL (0.76-1.46); THYROID STIMULATING HORMONE 3.69 mIU/L (0.358-3.740)
--- NOTE | 2019-04-24 08:59 | NUR ---
[facility]
--- NOTE | 2019-04-24 09:15 | NUR ---
PT OOB AMBULATED TO BATHROOM UPRIGHT STEADY GAIT.
--- NOTE | 2019-04-24 09:22 | NUR ---
LATE ENTRY FOR 0700, SBAR RPT REC'D AND ASSUMED PT CARE. PT OOB WALKING IN HALLWAY. REDIRECTED BACK TO ROOM. BEDSIDE COMMODE PLACED IN ROOM. POC DISCUSSED WITH PT AND QUESTIONS ANSWERED.
--- NOTE | 2019-04-24 09:24 | NUR ---
LATE ENTRY FOR 0845, MEAL TRAY PROVIDED TO PT.
--- NOTE | 2019-04-24 09:35 | NUR ---
[facility] ([facility]) INITIATED.
--- NOTE | 2019-04-24 09:35 | NUR ---
THROUGHPUT: [facility] PACKET FAXED.
--- NOTE | 2019-04-24 12:49 | NUR ---
LUNCH RN: [facility] AT BEDSIDE FOR ASSESSMENT
[2019-04-24] MEDS ORDERED: LEVETIRACETAM 500 MG TABLET ONE (13:26)
[2019-04-24] MEDS ORDERED: CHLORDIAZEPOXIDE 25 MG CAPSULE ONE (13:27)
[2019-04-24] MEDS ORDERED: LEVETIRACETAM 500 MG TABLET PO ONE (13:30)
[2019-04-24] MEDS ORDERED: CHLORDIAZEPOXIDE 25 MG CAPSULE PO ONE (13:30)
[2019-04-24] MEDS ORDERED: IBUPROFEN 200 MG TABLET PO ONE (14:30)
[2019-04-24] MEDS ORDERED: METOPROLOL TARTRATE 25 MG TABLET PO ONE (14:30)
[2019-04-24] MEDS ORDERED: METOPROLOL TARTRATE 25 MG TABLET ONE (14:34)
[2019-04-24] MEDS ORDERED: IBUPROFEN 200 MG TABLET ONE (14:55)
--- NOTE | 2019-04-24 15:26 | NUR ---
PT COMPLAINING OF PAIN, MEDICATED WITH MOTRIN PER MD ORDER.
--- NOTE | 2019-04-24 16:16 | NUR ---
PT REQUESTING MD BRITTA NOTIFIED AND NEW ORDER RECEIVED AND IMPLEMENTED.
--- NOTE | 2019-04-24 16:39 | NUR ---
Chart faxed to [facility] at [phone]
--- NOTE | 2019-04-24 16:40 | NUR ---
Called [facility] they are reviewing chart and will call back.
--- NOTE | 2019-04-24 19:09 | NUR ---
[facility]
[2019-04-24 20:00] VITALS: BP 136/94
--- NOTE | 2019-04-24 20:01 | NUR ---
PT RESTING ON [facility], SITES D/C'D, 2X2 DRSG APPLIED AND HOMESTATIS ACHIEVED, MONITORS IN PLACE, CALL LIGHT WITHIN REACH. AWAITING [facility] TRASFER TO [facility]
== END 2019-04-24 20:24 ==
LOC: ED 05:08
DX: F32.9 Major depressive disorder, single episode, unspecified (principal); F10.239 Alcohol dependence with withdrawal, unspecified; F15.10 Other stimulant abuse, uncomplicated; I10 Essential (primary) hypertension; E11.9 Type 2 diabetes mellitus without complications; J45.909 Unspecified asthma, uncomplicated; F43.10 Post-traumatic stress disorder, unspecified; E66.9 Obesity, unspecified; Z68.37 Body mass index [BMI] 37.0-37.9, adult; Z79.899 Other long term (current) drug therapy; Z88.2 Allergy status to sulfonamides; Z72.9 Problem related to lifestyle, unspecified; Z98.890 Other specified postprocedural states; Y90.9 Presence of alcohol in blood, level not specified
CPT/HCPCS: 36415; 80053; 80307; 84439; 84443; 84703; 85025; 93005; 96372; 96374; 96376; 99285; J2060; J3486; J7030

== ENCOUNTER 2019-05-14 05:37 | Emergency (ER) | payer MEDICAID ==
[~2019-05-14] VITALS: Ht 165.1 cm; Wt 91.0 kg
[2019-05-14 05:41] VITALS: BP 122/84
--- NOTE | 2019-05-14 05:53 | NUR ---
PT AGREE TO CT OF HEAD FOR POSSIBLE FALL RECENTLY, IF CLEAR, PT AGREABLE TO [facility] REFERAL FOR DETOX
[2019-05-14] MEDS ORDERED: ACETAMINOPHEN 500 MG TABLET ONE (06:08)
--- NOTE | 2019-05-14 06:38 | NUR ---
pt declined to wait for ct results, getting pt taxi to [facility] at pt request.
== END 2019-05-14 06:41 | disposition left against medical advice (07) ==
LOC: ED 06:08
DX: F10.120 Alcohol abuse with intoxication, uncomplicated (principal); S09.8XXA Other specified injuries of head, initial encounter; E66.9 Obesity, unspecified; I10 Essential (primary) hypertension; E11.9 Type 2 diabetes mellitus without complications; X58.XXXA Exposure to other specified factors, initial encounter; Y93.89 Activity, other specified; Y92.89 Other specified places as the place of occurrence of the external cause; Y99.8 Other external cause status
CPT/HCPCS: 70450; 99284

== ENCOUNTER 2019-06-04 04:23 | Emergency (ER) | payer MEDICAID ==
[~2019-06-04] VITALS: Ht 154.9 cm; Wt 95.4 kg
--- NOTE | 2019-06-04 04:27 | NUR ---
PT CALLED FOR TRIAGE AND IS IN BATHROOM.
[2019-06-04] MEDS ORDERED: LORA-445 PO (04:33)
[2019-06-04] MEDS ORDERED: DIVA250T4 PO (04:33)
[2019-06-04] MEDS ORDERED: ATOR40TA78 PO (04:34)
--- NOTE | 2019-06-04 04:43 | NUR ---
FIRST CONTACT WITH PT. PT HERE FOR MEDICATION REFILLS. MEDICATION HAVE BEEN STOLEN. PT'S AOX4. RESPS EVEN AND UNLABORED. PT HAS SINUS TACY RATE 130'S HERE. ALL MONITORS IN PLACE. CALL LIGHT WITHIN REACH. PA AT BEDSIDE TO EVALUATE.
[2019-06-04] MEDS ORDERED: LORazepam 2 MG/ML, 1ML ONE ×2 (04:47→06:13)
[2019-06-04] MEDS ORDERED: KETOROLAC 30 MG/1 ML ONE (04:47)
[2019-06-04] MEDS ORDERED: LORazepam 2 MG/ML, 1ML IVPush ONE ×2 (05:00→06:30)
[2019-06-04] MEDS ORDERED: KETOROLAC 30 MG/1 ML IVPush ONE (05:00)
[2019-06-04] MEDS ORDERED: SODIUM CHLORIDE FLUSH 10ML SYR IVF ONE (05:00)
--- NOTE | 2019-06-04 05:04 | NUR ---
XRAY: PT REFUSED PORTABLE CHEST X-RAY ORDERED
--- NOTE | 2019-06-04 05:13 | NUR ---
EKG DONE AT BEDSIDE BY EMT.
--- NOTE | 2019-06-04 05:13 | NUR ---
PT MEDICATED PER EM[facility]. PT TOLERATED WELL.
--- NOTE | 2019-06-04 05:19 | NUR ---
PT AMB TO BR WITH STEADY GAIT.
[2019-06-04 05:24] LABS: BASOPHILS # (AUTO) 0.02 x10^3/uL (0-0.1); BASOPHILS % (AUTO) 1 % (0-1); EOSINOPHILS # (AUTO) 0.01 x10^3/uL (0-0.4); EOSINOPHILS % (AUTO) 0 % (1-7); LYMPHOCYTES # (AUTO) 1.29 x10^3/uL (1-3.4); LYMPHOCYTES % (AUTO) 25 % (22-44); MD NO; MEAN CORPUSCULAR HEMOGLOBIN 31.2 pg (27.0-34.8); MEAN CORPUSCULAR HGB CONC 33.3 g/dL (32.4-35.8); MEAN CORPUSCULAR VOLUME 93.6 fL (80-100); MEAN PLATELET VOLUME 6.8 fL (7.4-10.4); MONOCYTES % (AUTO) 6 % (2-9); NEUTROPHILS # (AUTO) 3.58 x10^3/uL (1.8-6.8); NEUTROPHILS % (AUTO) 69 % (42-75); PLATELET COUNT 240 x10^3/uL (130-400); RED BLOOD COUNT 4.17 x10^6/uL (3.82-5.3); RED CELL DISTRIBUTION WIDTH 13.6 % (9.6-15.2)
[2019-06-04 05:32] LABS: ALANINE AMINOTRANSFERASE 18 U/L (12-78); ALBUMIN 3.7 g/dL (3.4-5.0); ANION GAP 12 mmol/L (5-15); CHLORIDE 105 mmol/L (98-107); CREATININE 0.62 mg/dL (0.55-1.02)
[2019-06-04 05:34] LABS: ALKALINE PHOSPHATASE 52 U/L (45-117); BILIRUBIN,TOTAL 0.2 mg/dL (0.2-1.0); TOTAL PROTEIN 7.6 g/dL (6.4-8.2)
[2019-06-04] MEDS ORDERED: METOPROLOL 1 MG/ML, 5ML ONE (05:57)
[2019-06-04] MEDS ORDERED: METOPROLOL 1 MG/ML, 5ML IVPush ONE (06:00)
--- NOTE | 2019-06-04 06:03 | NUR ---
PT MEDICATED PER EM[facility]. PT TOLERATED WELL.
--- NOTE | 2019-06-04 06:17 | NUR ---
PT MEDICATED PER EM[facility]. PT TOLERATED WELL.
--- NOTE | 2019-06-04 06:38 | NUR ---
2ND EKG DONE AT BEDSIDE BY EMT.
--- NOTE | 2019-06-04 06:59 | NUR ---
REPORT GIVEN TO THOM KIRBY.
[2019-06-04 07:21] VITALS: BP 132/78
== END 2019-06-04 07:23 | disposition home or self-care (01) ==
LOC: ED 04:45
DX: R00.0 Tachycardia, unspecified (principal); I10 Essential (primary) hypertension; F41.1 Generalized anxiety disorder; E11.65 Type 2 diabetes mellitus with hyperglycemia; Z76.0 Encounter for issue of repeat prescription; F31.9 Bipolar disorder, unspecified; F43.10 Post-traumatic stress disorder, unspecified; J45.909 Unspecified asthma, uncomplicated; Z72.9 Problem related to lifestyle, unspecified
CPT/HCPCS: 36415; 80053; 85025; 93005; 96374; 96375; 96376; 99284; J1885; J2060

== ENCOUNTER 2020-01-06 21:10 | Emergency (ER) | payer MEDICAID ==
[~2020-01-06] VITALS: Ht 152.4 cm; Wt 105.4 kg
[~2020-01-06 21:10] MED LIST changes: +ATOR40TA78 PO; +CLON-364 PO; -CLON0.5T11 PO; -HYDR-3307 PO; +HYDR-36 PO; +HYDR-826 PO; -HYDR25TA11 PO; +LORA-445 PO; -TRAZ-137 PO; +TRAZ-175 PO
[2020-01-06 21:21] VITALS: BP 133/98
[2020-01-06] MEDS ORDERED: HYDROcodone/APAP 5/325 TABLET ONE (21:55)
--- NOTE | 2020-01-06 21:57 | NUR ---
MEDS ADMIN PER JAN.
[2020-01-06] MEDS ORDERED: HYDROcodone/APAP 5/325 TABLET PO ONE (22:00)
== END 2020-01-06 22:09 | disposition home or self-care (01) ==
LOC: ED 21:39
DX: K08.89 Other specified disorders of teeth and supporting structures (principal); E11.9 Type 2 diabetes mellitus without complications; I10 Essential (primary) hypertension; J45.909 Unspecified asthma, uncomplicated
CPT/HCPCS: 99282

== ENCOUNTER 2020-01-18 01:36 | Emergency (ER) | payer MEDICAID ==
[~2020-01-18] VITALS: Ht 154.9 cm; Wt 101.1 kg
[2020-01-18 02:15] LABS: BASOPHILS # (AUTO) 0.03 x10^3/uL (0-0.1); BASOPHILS % (AUTO) 1 % (0-1); EOSINOPHILS # (AUTO) 0.11 x10^3/uL (0-0.4); EOSINOPHILS % (AUTO) 3 % (1-7); LYMPHOCYTES # (AUTO) 1.99 x10^3/uL (1-3.4); LYMPHOCYTES % (AUTO) 43 % (22-44); MD NO; MEAN CORPUSCULAR HEMOGLOBIN 31.5 pg (27.0-34.8); MEAN CORPUSCULAR HGB CONC 33.8 g/dL (32.4-35.8); MEAN CORPUSCULAR VOLUME 93.1 fL (80-100); MONOCYTES # (AUTO) 0.35 x10^3/uL (0.2-0.8); MONOCYTES % (AUTO) 8 % (2-9); NEUTROPHILS % (AUTO) 46 % (42-75); PLATELET COUNT 203 x10^3/uL (130-400); RED CELL DISTRIBUTION WIDTH 12.6 % (9.6-15.2)
[2020-01-18 02:28] LABS: ALBUMIN 3.5 g/dL (3.4-5.0); ANION GAP 5 mmol/L (5-15); CALCIUM 8.9 mg/dL (8.5-10.1); CHLORIDE 102 mmol/L (98-107); CREATININE 1.07 mg/dL (0.55-1.02)
[2020-01-18 02:31] LABS: TROPONIN I < 0.015 ng/mL (0.000-0.045)
[2020-01-18] MEDS ORDERED: IBUPROFEN 200 MG TABLET ONE (02:58)
[2020-01-18] MEDS ORDERED: IBUPROFEN 200 MG TABLET PO ONE (03:00)
[2020-01-18 04:27] VITALS: BP 136/59
== END 2020-01-18 04:30 ==
LOC: ED 04:24
DX: M94.0 Chondrocostal junction syndrome [Tietze] (principal); R07.9 Chest pain, unspecified; E11.9 Type 2 diabetes mellitus without complications; I10 Essential (primary) hypertension
CPT/HCPCS: 36415; 71045; 80048; 82040; 84484; 85025; 93005; 99285

== ENCOUNTER 2020-01-27 15:25 | Emergency (ER) | payer MEDICAID ==
[~2020-01-27] VITALS: Ht 154.9 cm; Wt 105.0 kg
--- NOTE | 2020-01-27 16:11 | NUR ---
PT TO ROOM FROM LOBBY AT THIS TIME.
--- NOTE | 2020-01-27 16:22 | NUR ---
TASK RN: CONTACT WITH PT, 39 YR OLD FEMALE HERE WITH C/O "HYPERTENSION AND KNEE PAIN" THIS EPISODE HAS BEEN FOR A COUPLE OF HOURS. "FEEL LIKE MY HEART IS RACING" HAS TAKEN IBUPROFEN, NTG AND ATIVAN WITHOUT IMPROVEMENT. PT IS OUT OF METOPROLOL. DR ESCOTO AT BEDSIDE TO EVAL PT. PT ASKING FOR "NORCO" DISCUSSION OF TAKING NAPROXEN AND TYLENOL FOR PAIN BY DR ESCOTO. PT STATES SHE IS GOING TO F/U WITH [facility] FOR PAIN MANAGEMENT TO BE ABLE TO CONTIUNE "MY NORCOS" NO ACUTE DISTRESS NOTED. SR/ST PER MONITOR.
[2020-01-27 16:25] VITALS: BP 113/65
[2020-01-27] MEDS ORDERED: METOPROLOL TARTRATE 25 MG TAB ONE (16:27)
[2020-01-27] MEDS ORDERED: METOPROLOL TARTRATE 25 MG TAB PO ONE (16:30)
--- NOTE | 2020-01-27 16:34 | NUR ---
PT MEDICATED PER EM[facility].
--- NOTE | 2020-01-27 17:11 | NUR ---
Patient given discharge instructions and they have confirmed that they understand the instructions. Patient ambulatory with steady gait.
== END 2020-01-27 17:12 | disposition home or self-care (01) ==
LOC: ED 17:05
DX: I10 Essential (primary) hypertension (principal); M25.562 Pain in left knee; M25.561 Pain in right knee; J45.909 Unspecified asthma, uncomplicated; E11.9 Type 2 diabetes mellitus without complications; R00.0 Tachycardia, unspecified; Z76.0 Encounter for issue of repeat prescription
CPT/HCPCS: 93005; 99283

== ENCOUNTER 2020-02-01 06:54 | Emergency (ER) | payer MEDICAID ==
[~2020-02-01] VITALS: Ht 154.9 cm; Wt 102.0 kg
[2020-02-01] MEDS ORDERED: DIPHENHYDRAMINE 50 MG/ML, 1ML IM ONE (07:30)
[2020-02-01] MEDS ORDERED: ACETAMINOPHEN 500 MG TABLET PO ONE (07:30)
[2020-02-01] MEDS ORDERED: FAMOTIDINE 20 MG TABLET PO ONE (07:30)
[2020-02-01] MEDS ORDERED: FAMOTIDINE 20 MG TABLET ONE (07:59)
[2020-02-01] MEDS ORDERED: ACETAMINOPHEN 500 MG TABLET ONE (08:00)
--- NOTE | 2020-02-01 08:26 | NUR ---
pt sleeping nadn
[2020-02-01] MEDS ORDERED: ALBUTEROL/IPRATROPIUM 2.5MG/0.5MG, 3 ML ONE (08:47)
[2020-02-01] MEDS ORDERED: EPINEPHRINE 1 MG/ML, 1ML ONE (08:52)
[2020-02-01] MEDS ORDERED: ALBUTEROL/IPRATROPIUM 2.5MG/0.5MG, 3 ML NPPB ONE (09:00)
[2020-02-01] MEDS ORDERED: EPINEPHRINE 1 MG/ML, 1ML SQ ONE (09:00)
--- NOTE | 2020-02-01 09:20 | NUR ---
sats to 88 o2 nc 3 lpm applied
--- NOTE | 2020-02-01 10:04 | NUR ---
contunies to desat while sleeping remains on
[2020-02-01 11:55] VITALS: BP 132/64
== END 2020-02-01 12:06 | disposition home or self-care (01) ==
LOC: ED 12:00
DX: L50.9 Urticaria, unspecified (principal); I10 Essential (primary) hypertension; E11.9 Type 2 diabetes mellitus without complications; E66.9 Obesity, unspecified
CPT/HCPCS: 94640; 96372; 99284; J0171; J7512

== ENCOUNTER 2020-05-22 23:19 | Emergency (ER) | payer MEDICAID ==
[~2020-05-22] VITALS: Ht 154.9 cm; Wt 100.0 kg
[~2020-05-22 23:19] MED LIST changes: +HYDR-3246 PO; -HYDR-36 PO
[2020-05-23 00:54] LABS: BASOPHILS # (AUTO) 0.02 x10^3/uL (0-0.1); BASOPHILS % (AUTO) 1 % (0-1); EOSINOPHILS # (AUTO) 0.16 x10^3/uL (0-0.4); EOSINOPHILS % (AUTO) 3 % (1-7); LYMPHOCYTES # (AUTO) 1.26 x10^3/uL (1-3.4); LYMPHOCYTES % (AUTO) 24 % (22-44); MD NO; MEAN CORPUSCULAR HEMOGLOBIN 31.6 pg (27.0-34.8); MEAN CORPUSCULAR HGB CONC 33.2 g/dL (32.4-35.8); MEAN PLATELET VOLUME 7.9 fL (7.4-10.4); MONOCYTES # (AUTO) 0.36 x10^3/uL (0.2-0.8); MONOCYTES % (AUTO) 7 % (2-9); NEUTROPHILS # (AUTO) 3.48 x10^3/uL (1.8-6.8); NEUTROPHILS % (AUTO) 66 % (42-75); PLATELET COUNT 231 x10^3/uL (130-400); RED BLOOD COUNT 4.06 x10^6/uL (3.82-5.3); RED CELL DISTRIBUTION WIDTH 13.9 % (9.6-15.2)
--- NOTE | 2020-05-23 00:58 | NUR ---
Patient presents to ER c/o rash and discomfort in groin area. Patient states this has been going on for four days. Patient is in NAD and falls asleep easily. Patient admits to drinking approx 4 alcoholic beverages. Denies drug use. Respirations even and unlabored.
[2020-05-23 00:59] LABS: ALANINE AMINOTRANSFERASE 36 U/L (12-78); ALBUMIN 3.3 g/dL (3.4-5.0); ANION GAP 5 mmol/L (5-15); CALCIUM 8.8 mg/dL (8.5-10.1); CHLORIDE 104 mmol/L (98-107); CREATININE 0.77 mg/dL (0.55-1.02); SALICYLATE LEVEL 2.1 mg/dL (2.8-20.0)
[2020-05-23 01:02] LABS: ALKALINE PHOSPHATASE 81 U/L (45-117); BILIRUBIN,TOTAL 0.2 mg/dL (0.2-1.0)
[2020-05-23 01:22] LABS: AMPHETAMINE SCREEN, URINE Positive (Negative); BARBITURATE SCREEN, URINE Negative (Negative); BENZODIAZEPINE SCREEN, URINE Positive (Negative); CANNABINOID SCREEN, URINE Negative (Negative); COCAINE SCREEN, URINE Negative (Negative); METHADONE SCREEN, URINE Negative (Negative); OPIATE SCREEN, URINE Negative (Negative)
[2020-05-23] MEDS ORDERED: CEPHALEXIN 500 MG CAPSULE PO SCH (02:30)
[2020-05-23] MEDS ORDERED: NYSTATIN TOPICAL POWDER 15GM TP SCH (02:30)
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
--- NOTE | 2020-05-23 04:58 | NUR ---
MT: CALLED TO REQUEST REPORT FROM TELEPSYCH AND WAS INFORMED THAT NO REPORT WAS CREATED FROM THE TELEPSYCH SESSION EARLIER [facility]. ALSO INFORMED THAT PT MUST HAVE ADDITIONAL CONSULTATION IN [place] TO RECIEVE A REPORT. A NEW CONSULTATION HAS BEEN INITIATED AND PT IS WAITING FOR DOCTOR TO COME ONLINE.
--- NOTE | 2020-05-23 05:06 | NUR ---
Telepsych called and this RN spoke with MD. He was the same MD who spoke with patient earlier. Informed him there was no report sent over. He states he still has the report number and will be sure it gets to us.
[2020-05-23] MEDS ORDERED: CEPHALEXIN 500 MG CAPSULE ONE (05:28)
[2020-05-23 05:55] VITALS: BP 112/63
--- NOTE | 2020-05-23 06:00 | NUR ---
Patient discharge instructions given. Patient refusing to leave stating, "I'm not ready." Security called to assist patient to discharge. Belongings with patient.
--- NOTE | 2020-05-23 06:43 | NUR ---
Security unable to escort patient out of the ER. [facility] called to assist.
== END 2020-05-23 06:45 | disposition home or self-care (01) ==
LOC: ED 05-23 01:07
DX: L24.9 Irritant contact dermatitis, unspecified cause (principal); B37.89 Other sites of candidiasis; F39 Unspecified mood [affective] disorder; E11.65 Type 2 diabetes mellitus with hyperglycemia; F10.10 Alcohol abuse, uncomplicated; F15.10 Other stimulant abuse, uncomplicated; I10 Essential (primary) hypertension; J45.909 Unspecified asthma, uncomplicated; F17.200 Nicotine dependence, unspecified, uncomplicated; Z72.9 Problem related to lifestyle, unspecified; Y90.9 Presence of alcohol in blood, level not specified
CPT/HCPCS: 36415; 80053; 80164; 80307; 83605; 84145; 84443; 85025; 87040; 99283

== ENCOUNTER 2020-07-04 09:22 | Emergency (ER) | payer MEDICAID ==
[~2020-07-04] VITALS: Ht 152.4 cm; Wt 100.0 kg
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
[2020-07-04] MEDS ORDERED: ACETAMINOPHEN 500 MG TABLET ONE (09:47)
--- NOTE | 2020-07-04 09:58 | NUR ---
PT REPORTS UNABLE TO PROVIDE URINE SAMPLE AT THIS TIME.
[2020-07-04] MEDS ORDERED: ACETAMINOPHEN 500 MG TABLET PO ONE (10:00)
--- NOTE | 2020-07-04 10:00 | NUR ---
PT TO RAD.
[2020-07-04 10:03] LABS: BASOPHILS # (AUTO) 0.03 x10^3/uL (0-0.1); BASOPHILS % (AUTO) 1 % (0-1); EOSINOPHILS # (AUTO) 0.02 x10^3/uL (0-0.4); EOSINOPHILS % (AUTO) 0 % (1-7); LYMPHOCYTES # (AUTO) 2.24 x10^3/uL (1-3.4); LYMPHOCYTES % (AUTO) 32 % (22-44); MD NO; MEAN CORPUSCULAR HEMOGLOBIN 30.9 pg (27.0-34.8); MEAN CORPUSCULAR HGB CONC 32.7 g/dL (32.4-35.8); MEAN CORPUSCULAR VOLUME 94.5 fL (80-100); MEAN PLATELET VOLUME 7.4 fL (7.4-10.4); MONOCYTES # (AUTO) 0.28 x10^3/uL (0.2-0.8); MONOCYTES % (AUTO) 4 % (2-9); NEUTROPHILS % (AUTO) 63 % (42-75); PLATELET COUNT 277 x10^3/uL (130-400); RED BLOOD COUNT 4.63 x10^6/uL (3.82-5.3); RED CELL DISTRIBUTION WIDTH 14.4 % (9.6-15.2)
[2020-07-04 10:10] LABS: ALANINE AMINOTRANSFERASE 36 U/L (12-78); ALBUMIN 4.1 g/dL (3.4-5.0); ANION GAP 11 mmol/L (5-15); CALCIUM 9.1 mg/dL (8.5-10.1); CHLORIDE 108 mmol/L (98-107); CREATININE 0.64 mg/dL (0.55-1.02)
[2020-07-04 10:14] LABS: ALKALINE PHOSPHATASE 73 U/L (45-117); BILIRUBIN,TOTAL 0.4 mg/dL (0.2-1.0); TOTAL PROTEIN 7.6 g/dL (6.4-8.2)
--- NOTE | 2020-07-04 10:15 | NUR ---
SHIPBOARD INTELLIGENCE ANALYST UPDATED ON NEED FOR SITTER.
[2020-07-04 10:31] VITALS: BP 109/74
--- NOTE | 2020-07-04 10:32 | NUR ---
PT REFUSING TO ATTEMPT UA. WILL UPDATE PROVIDER.
--- NOTE | 2020-07-04 11:57 | NUR ---
PT AMBULATED TO THE BR W/ A STEADY GAIT. UNABLE TO PROVIDE URINE SAMPLE.
--- NOTE | 2020-07-04 12:50 | NUR ---
AISHWARYA HAWTHORNE AT BEDSIDE FOR EVAL.
--- NOTE | 2020-07-04 13:09 | NUR ---
PER PT TO BE DC.
--- NOTE | 2020-07-04 13:19 | NUR ---
Patient given discharge instructions and they have confirmed that they understand the instructions. Patient ambulatory with steady gait.
== END 2020-07-04 13:24 | disposition home or self-care (01) ==
LOC: ED 13:00
DX: K43.9 Ventral hernia without obstruction or gangrene (principal); R10.9 Unspecified abdominal pain; R07.89 Other chest pain; R45.851 Suicidal ideations; R00.0 Tachycardia, unspecified; R19.7 Diarrhea, unspecified; R10.31 Right lower quadrant pain; I10 Essential (primary) hypertension; E11.9 Type 2 diabetes mellitus without complications; J45.909 Unspecified asthma, uncomplicated; F17.200 Nicotine dependence, unspecified, uncomplicated
CPT/HCPCS: 36415; 74022; 80053; 84703; 85025; 93005; 99285

== ENCOUNTER 2020-11-28 03:11 | Emergency (ER) | payer MEDICAID ==
[~2020-11-28] VITALS: Ht 154.9 cm; Wt 93.1 kg
[~2020-11-28 03:11] MED LIST changes: -PANT40TA5 PO; +PANT40TA6 PO
--- NOTE | 2020-11-28 03:57 | NUR ---
PT REFUSED CX XRAY...
[2020-11-28] MEDS ORDERED: OLANZAPINE 10 MG TABLET PO ONE (04:00)
[2020-11-28] MEDS ORDERED: LORazepam 1MG TABLET PO ONE (04:00)
[2020-11-28] MEDS ORDERED: ACETAMINOPHEN 325 MG TABLET PO ONE (04:00)
[2020-11-28] MEDS ORDERED: LORazepam 1MG TABLET ONE (04:05)
[2020-11-28] MEDS ORDERED: ACETAMINOPHEN 325 MG TABLET ONE (04:05)
[2020-11-28] MEDS ORDERED: OLANZAPINE 10 MG TABLET ONE (04:06)
[2020-11-28 04:12] VITALS: BP 112/64
--- NOTE | 2020-11-28 04:18 | NUR ---
PT BECAME UPSET WHEN TOLD SHE HAS TO KEEP PT GOWN ON WELL EQU. TO MONITOR HER VITALS.....
--- NOTE | 2020-11-28 04:29 | NUR ---
PT REFUSED LAB DRAW...
== END 2020-11-28 04:58 | disposition home or self-care (01) ==
LOC: ED 04:52
DX: R07.89 Other chest pain (principal); F15.122 Other stimulant abuse with intoxication with perceptual disturbance; R94.31 Abnormal electrocardiogram [ECG] [EKG]; Z72.9 Problem related to lifestyle, unspecified; I10 Essential (primary) hypertension; E11.9 Type 2 diabetes mellitus without complications
CPT/HCPCS: 93005; 99284

== ENCOUNTER 2021-01-14 23:15 | Inpatient (IN) | payer MEDICAID ==
[~2021-01-14] VITALS: Ht 154.9 cm; Wt 74.9 kg
[~2021-01-14 23:15] MED LIST changes: -ASPI-515 PO; +ASPI-963 PO; -FOLI-17 PO; +FOLI1TAB32 PO; +HYDR-1067 PO; -HYDR-3240 PO; -HYDR-3246 PO; +HYDR-3248 PO
[2021-01-15] MEDS ORDERED: BISACODYL 10 MG SUPP PR PRN (01:30)
[2021-01-15] MEDS ORDERED: DOCUSATE 100 MG CAPSULE PO PRN (01:30)
[2021-01-15] MEDS ORDERED: POLYETHYLENE GLYCOL 17 GM PACKET PO PRN (01:30)
[2021-01-15 02:35] VITALS: BP 112/83
[2021-01-15] MEDS ORDERED: PLEASE ENTER HEIGHT AND WEIGHT MC SCH (03:00)
[2021-01-15] MEDS ORDERED: IBUPROFEN 600 MG TABLET ONE (03:41)
[2021-01-15] MEDS ORDERED: LORazepam 1MG TABLET ONE (03:42)
[2021-01-15] MEDS: IBUPROFEN 600 MG TABLET PO PRN ×2 (03:44→13:43)
[2021-01-15] MEDS: LORazepam 1MG TABLET PO PRN ×3 (03:45→20:39)
[2021-01-15 04:22] VITALS: BP 112/83
[2021-01-15] MEDS: CALCIUM CARBONATE 500 MG TAB.CHEW PO PRN (04:49)
[2021-01-15 06:19] LABS: BASOPHILS % (AUTO) 1 % (0-1); EOSINOPHILS % (AUTO) 2 % (1-7); LYMPHOCYTES % (AUTO) 31 % (22-44); MEAN CORPUSCULAR HEMOGLOBIN 30.9 pg (27.0-34.8); MEAN CORPUSCULAR HGB CONC 33.9 g/dL (32.4-35.8); MEAN PLATELET VOLUME 7.2 fL (7.4-10.4); MONOCYTES % (AUTO) 5 % (2-9); NEUTROPHILS % (AUTO) 61 % (42-75); PLATELET COUNT 205 x10^3/uL (130-400); RED BLOOD COUNT 4.49 x10^6/uL (3.82-5.3); RED CELL DISTRIBUTION WIDTH 14.7 % (9.6-15.2)
[2021-01-15 06:20] LABS: MD NO
[2021-01-15 06:28] LABS: ANION GAP 9 mmol/L (5-15); CALCIUM 9.4 mg/dL (8.5-10.1); CHLORIDE 105 mmol/L (98-107); CHOLESTEROL, TOTAL 199 mg/dL (140-239); CREATININE 0.81 mg/dL (0.55-1.02)
[2021-01-15 06:55] LABS: CHOL/HDL RATIO 4.4; FREE T4 (FREE THYROXINE) 0.76 ng/dL (0.76-1.46); HDL CHOL % 23 % (28-40); HDL CHOLESTEROL (DIRECT) 45 mg/dL (40-60); LDL CHOLESTEROL,CALCULATED 98 mg/dL (54-169); LDL/HDL RATIO 2.2 (0.5-3.0); TRIGLYCERIDES 281 mg/dL (50-200); VLDL CHOLESTEROL 56 mg/dL (0-25)
[2021-01-15 07:43] VITALS: BP 113/76
[2021-01-15] MEDS: NICOTINE 7 MG/24 HR PATCH.TD24 TD SCH (08:26)
[2021-01-15] MEDS: BACLOFEN 10 MG TABLET PO SCH ×2 (08:27→20:41)
[2021-01-15] MEDS: LINAGLIPTIN 5 MG TAB PO SCH (08:27)
[2021-01-15] MEDS: metFORMIN 850 MG TABLET PO SCH ×2 (08:27→17:57)
[2021-01-15] MEDS: LEVOTHYROXINE 25 MCG TABLET PO SCH (08:32)
[2021-01-15] MEDS: HYDROcodone/APAP 5/325 TABLET PO PRN ×2 (09:50→20:39)
[2021-01-15] MEDS: INSULIN LISPRO 100 UNITS/ML, PEN SQ-INSULIN SCH ×3 (11:00→21:07)
[2021-01-15] MEDS: ONDANSETRON ODT 4 MG PO PRN (11:18)
[2021-01-15] MEDS: LITHIUM CARBONATE 300 MG CAPSULE PO SCH ×2 (15:03→20:38)
[2021-01-15] MEDS: QUETIAPINE 100MG TABLET PO SCH ×3 (15:03→20:40)
[2021-01-15 18:26] LABS: MICROSCOPIC NOT IND
[2021-01-15] MEDS: DIVALPROEX 500 MG TABLET.DR PO SCH (20:40)
[2021-01-15] MEDS: ATORVASTATIN 40 MG TABLET PO SCH (20:40)
[2021-01-15] MEDS: MUPIROCIN OINT 2%, 22GM TP SCH (21:08)
[2021-01-16] MEDS: HYDROcodone/APAP 5/325 TABLET PO PRN ×2 (05:55→15:26)
[2021-01-16] MEDS: LEVOTHYROXINE 25 MCG TABLET PO SCH (05:55)
[2021-01-16] MEDS: LORazepam 1MG TABLET PO PRN ×3 (05:59→20:36)
[2021-01-16] MEDS: INSULIN LISPRO 100 UNITS/ML, PEN SQ-INSULIN SCH ×4 (07:00→20:45)
[2021-01-16 07:33] VITALS: BP 102/55
[2021-01-16] MEDS: QUETIAPINE 100MG TABLET PO SCH ×3 (08:55→20:37)
[2021-01-16] MEDS: LINAGLIPTIN 5 MG TAB PO SCH (08:55)
[2021-01-16] MEDS: metFORMIN 850 MG TABLET PO SCH ×2 (08:55→16:51)
[2021-01-16] MEDS: LITHIUM CARBONATE 300 MG CAPSULE PO SCH ×2 (08:55→20:36)
[2021-01-16] MEDS: NICOTINE 7 MG/24 HR PATCH.TD24 TD SCH (08:56)
[2021-01-16] MEDS: BACLOFEN 10 MG TABLET PO SCH ×2 (08:56→20:36)
[2021-01-16] MEDS: MUPIROCIN OINT 2%, 22GM TP SCH ×2 (09:18→20:45)
[2021-01-16 19:41] VITALS: BP_SYST 113; BP_SYST 127; BP_DIAS 68; BP_DIAS 74
[2021-01-16] MEDS: DIVALPROEX 500 MG TABLET.DR PO SCH (20:36)
[2021-01-16] MEDS: ATORVASTATIN 40 MG TABLET PO SCH (20:36)
[2021-01-17] MEDS: HYDROcodone/APAP 5/325 TABLET PO PRN ×3 (04:35→20:41)
[2021-01-17] MEDS: LORazepam 1MG TABLET PO PRN ×2 (04:36→10:25)
[2021-01-17] MEDS: LEVOTHYROXINE 25 MCG TABLET PO SCH (06:07)
[2021-01-17] MEDS: CALCIUM CARBONATE 500 MG TAB.CHEW PO PRN (06:26)
[2021-01-17] MEDS: INSULIN LISPRO 100 UNITS/ML, PEN SQ-INSULIN SCH ×4 (06:31→20:44)
[2021-01-17 07:34] VITALS: BP 108/73
[2021-01-17] MEDS: metFORMIN 850 MG TABLET PO SCH ×2 (08:00→16:01)
[2021-01-17] MEDS: DIVALPROEX 500 MG TABLET.DR PO SCH ×2 (08:40→20:48)
[2021-01-17] MEDS: QUETIAPINE 100MG TABLET PO SCH ×3 (08:40→20:38)
[2021-01-17] MEDS: LITHIUM CARBONATE 300 MG CAPSULE PO SCH ×2 (08:40→20:42)
[2021-01-17] MEDS: BACLOFEN 10 MG TABLET PO SCH ×2 (08:41→20:42)
[2021-01-17] MEDS: NICOTINE 7 MG/24 HR PATCH.TD24 TD SCH (08:42)
[2021-01-17] MEDS: MUPIROCIN OINT 2%, 22GM TP SCH ×2 (08:44→20:45)
[2021-01-17] MEDS: LINAGLIPTIN 5 MG TAB PO SCH (09:00)
[2021-01-17] MEDS: IBUPROFEN 600 MG TABLET PO PRN ×2 (10:32→16:01)
[2021-01-17] MEDS: ONDANSETRON ODT 4 MG PO PRN (16:00)
[2021-01-17] MEDS: HYDROXYZINE PAMOATE 50MG CAP PO PRN (16:01)
[2021-01-17 19:39] VITALS: BP 103/67
[2021-01-17] MEDS: ATORVASTATIN 40 MG TABLET PO SCH (20:41)
[2021-01-17] MEDS: ZOLPIDEM 5MG TABLET PO PRN (20:42)
[2021-01-18] MEDS: HYDROXYZINE PAMOATE 50MG CAP PO PRN ×2 (02:52→10:51)
[2021-01-18] MEDS: ACETAMINOPHEN 325 MG TABLET PO PRN (02:52)
[2021-01-18] MEDS: HYDROcodone/APAP 5/325 TABLET PO PRN ×2 (05:39→14:23)
[2021-01-18] MEDS: LEVOTHYROXINE 25 MCG TABLET PO SCH (05:39)
[2021-01-18] MEDS: METOPROLOL SUCCINATE 25 MG TAB.ER.24H PO SCH (05:39)
[2021-01-18] MEDS: INSULIN LISPRO 100 UNITS/ML, PEN SQ-INSULIN SCH ×4 (07:00→19:59)
[2021-01-18 08:00] VITALS: BP 103/84
[2021-01-18] MEDS: LITHIUM CARBONATE 300 MG CAPSULE PO SCH ×2 (08:23→19:56)
[2021-01-18] MEDS: NICOTINE 7 MG/24 HR PATCH.TD24 TD SCH (08:23)
[2021-01-18] MEDS: LINAGLIPTIN 5 MG TAB PO SCH (08:23)
[2021-01-18] MEDS: metFORMIN 850 MG TABLET PO SCH ×2 (08:23→17:01)
[2021-01-18] MEDS: BACLOFEN 10 MG TABLET PO SCH ×2 (08:24→19:52)
[2021-01-18] MEDS: DIVALPROEX 500 MG TABLET.DR PO SCH ×2 (08:24→19:56)
[2021-01-18] MEDS: QUETIAPINE 100MG TABLET PO SCH ×3 (08:24→19:59)
[2021-01-18] MEDS: MUPIROCIN OINT 2%, 22GM TP SCH ×2 (08:38→19:59)
[2021-01-18] MEDS: CALCIUM CARBONATE 500 MG TAB.CHEW PO PRN (13:12)
[2021-01-18] MEDS ORDERED: LORazepam 1MG TABLET PO PRN (14:00)
[2021-01-18] MEDS: ONDANSETRON ODT 4 MG PO PRN (14:23)
[2021-01-18] MEDS: LORazepam 0.5MG TABLET PO PRN ×2 (15:57→19:56)
[2021-01-18] MEDS: IBUPROFEN 600 MG TABLET PO PRN (19:25)
[2021-01-18 19:41] VITALS: BP 134/82
[2021-01-18] MEDS: LOPERAMIDE 2 MG CAPSULE PO PRN (19:56)
[2021-01-18] MEDS: ATORVASTATIN 40 MG TABLET PO SCH (19:56)
[2021-01-18] MEDS: ZOLPIDEM 5MG TABLET PO PRN (19:56)
[2021-01-19] MEDS: HYDROcodone/APAP 5/325 TABLET PO PRN ×3 (02:51→20:16)
[2021-01-19] MEDS: LORazepam 0.5MG TABLET PO PRN ×2 (05:19→14:37)
[2021-01-19] MEDS: METOPROLOL SUCCINATE 25 MG TAB.ER.24H PO SCH (05:19)
[2021-01-19] MEDS: LEVOTHYROXINE 25 MCG TABLET PO SCH (05:19)
[2021-01-19] MEDS: INSULIN LISPRO 100 UNITS/ML, PEN SQ-INSULIN SCH ×4 (07:00→20:22)
[2021-01-19] MEDS: metFORMIN 850 MG TABLET PO SCH ×2 (08:00→16:51)
[2021-01-19 08:04] VITALS: BP 113/77
[2021-01-19] MEDS: NICOTINE 7 MG/24 HR PATCH.TD24 TD SCH (08:53)
[2021-01-19] MEDS: LITHIUM CARBONATE 300 MG CAPSULE PO SCH ×2 (08:53→20:17)
[2021-01-19] MEDS: DIVALPROEX 500 MG TABLET.DR PO SCH ×2 (08:53→20:15)
[2021-01-19] MEDS: QUETIAPINE 100MG TABLET PO SCH ×3 (08:54→20:22)
[2021-01-19] MEDS: CALCIUM CARBONATE 500 MG TAB.CHEW PO PRN (08:54)
[2021-01-19] MEDS: LINAGLIPTIN 5 MG TAB PO SCH (08:54)
[2021-01-19] MEDS: ONDANSETRON ODT 4 MG PO PRN ×3 (08:54→21:40)
[2021-01-19] MEDS: LOPERAMIDE 2 MG CAPSULE PO PRN ×3 (08:59→17:54)
[2021-01-19] MEDS: MUPIROCIN OINT 2%, 22GM TP SCH ×2 (08:59→20:23)
[2021-01-19] MEDS: BACLOFEN 10 MG TABLET PO SCH ×2 (09:00→20:17)
[2021-01-19] MEDS: HYDROXYZINE PAMOATE 50MG CAP PO PRN ×2 (10:18→20:15)
[2021-01-19 19:52] VITALS: BP 109/70
[2021-01-19] MEDS: ZOLPIDEM 5MG TABLET PO PRN (20:17)
[2021-01-19] MEDS: ATORVASTATIN 40 MG TABLET PO SCH (20:17)
[2021-01-20] MEDS: LORazepam 0.5MG TABLET PO PRN ×2 (00:10→14:10)
[2021-01-20] MEDS: IBUPROFEN 600 MG TABLET PO PRN (00:10)
[2021-01-20] MEDS: HYDROcodone/APAP 5/325 TABLET PO PRN ×3 (04:23→20:30)
[2021-01-20 06:05] VITALS: BP 99/67
[2021-01-20] MEDS: LEVOTHYROXINE 25 MCG TABLET PO SCH (06:13)
[2021-01-20] MEDS: METOPROLOL SUCCINATE 25 MG TAB.ER.24H PO SCH (06:17)
[2021-01-20] MEDS: INSULIN LISPRO 100 UNITS/ML, PEN SQ-INSULIN SCH ×4 (07:00→20:29)
[2021-01-20 07:26] VITALS: BP 113/72
[2021-01-20] MEDS: ONDANSETRON ODT 4 MG PO PRN ×2 (07:59→21:00)
[2021-01-20] MEDS: QUETIAPINE 100MG TABLET PO SCH ×3 (07:59→20:30)
[2021-01-20] MEDS: metFORMIN 850 MG TABLET PO SCH ×2 (07:59→08:00)
[2021-01-20] MEDS: LITHIUM CARBONATE 300 MG CAPSULE PO SCH ×2 (07:59→20:30)
[2021-01-20] MEDS: DIVALPROEX 500 MG TABLET.DR PO SCH ×2 (07:59→20:30)
[2021-01-20] MEDS: BACLOFEN 10 MG TABLET PO SCH ×2 (08:00→20:30)
[2021-01-20] MEDS: NICOTINE 7 MG/24 HR PATCH.TD24 TD SCH (08:00)
[2021-01-20] MEDS: LINAGLIPTIN 5 MG TAB PO SCH (08:00)
[2021-01-20] MEDS: MUPIROCIN OINT 2%, 22GM TP SCH ×2 (08:38→20:29)
[2021-01-20] MEDS: HYDROXYZINE PAMOATE 50MG CAP PO PRN ×2 (12:19→20:30)
[2021-01-20] MEDS ORDERED: metFORMIN 500 MG TABLET ONE (16:44)
[2021-01-20] MEDS ORDERED: metFORMIN 850 MG TABLET PO SCH (17:00)
[2021-01-20 19:44] VITALS: BP 104/71
[2021-01-20] MEDS: ZOLPIDEM 5MG TABLET PO PRN (20:30)
[2021-01-20] MEDS: ATORVASTATIN 40 MG TABLET PO SCH (20:30)
[2021-01-21] MEDS: LORazepam 0.5MG TABLET PO PRN ×2 (00:02→16:26)
[2021-01-21] MEDS: IBUPROFEN 600 MG TABLET PO PRN ×2 (00:02→16:36)
[2021-01-21] MEDS: ONDANSETRON ODT 4 MG PO PRN ×2 (00:04→16:26)
[2021-01-21] MEDS: HYDROcodone/APAP 5/325 TABLET PO PRN ×3 (04:33→21:06)
[2021-01-21 05:41] VITALS: BP 110/72
[2021-01-21] MEDS: METOPROLOL SUCCINATE 25 MG TAB.ER.24H PO SCH (05:44)
[2021-01-21] MEDS: LEVOTHYROXINE 25 MCG TABLET PO SCH (05:44)
[2021-01-21] MEDS: INSULIN LISPRO 100 UNITS/ML, PEN SQ-INSULIN SCH ×4 (07:00→21:07)
[2021-01-21 07:42] VITALS: BP 107/67
[2021-01-21] MEDS: LINAGLIPTIN 5 MG TAB PO SCH (08:10)
[2021-01-21] MEDS: metFORMIN 500 MG TABLET PO SCH ×2 (08:10→16:37)
[2021-01-21] MEDS: BACLOFEN 10 MG TABLET PO SCH ×2 (08:10→21:04)
[2021-01-21] MEDS: LITHIUM CARBONATE 300 MG CAPSULE PO SCH ×2 (08:11→21:00)
[2021-01-21] MEDS: QUETIAPINE 100MG TABLET PO SCH ×3 (08:11→21:00)
[2021-01-21] MEDS: DIVALPROEX 500 MG TABLET.DR PO SCH ×2 (08:11→21:04)
[2021-01-21] MEDS: NICOTINE 7 MG/24 HR PATCH.TD24 TD SCH (08:12)
[2021-01-21] MEDS: MUPIROCIN OINT 2%, 22GM TP SCH ×2 (08:15→21:06)
[2021-01-21] MEDS ORDERED: METO25TA91 PO (13:14)
[2021-01-21] MEDS ORDERED: BACL-19 PO (13:14)
[2021-01-21] MEDS ORDERED: LEVO25TA2 PO (13:14)
[2021-01-21] MEDS ORDERED: METF500T PO (13:14)
[2021-01-21] MEDS ORDERED: LITH300C PO ×2 (13:14)
[2021-01-21] MEDS ORDERED: NICO-485 TD (13:14)
[2021-01-21] MEDS ORDERED: LINA5TAB PO (13:14)
[2021-01-21] MEDS ORDERED: HYDR50CA2 PO (13:14)
[2021-01-21] MEDS ORDERED: QUET100T PO (13:14)
[2021-01-21] MEDS ORDERED: ATOR40TA78 PO (13:14)
[2021-01-21] MEDS ORDERED: DIVA-61 PO (13:14)
[2021-01-21 19:35] VITALS: BP 106/68
[2021-01-21] MEDS: ATORVASTATIN 40 MG TABLET PO SCH (21:00)
[2021-01-21] MEDS: ZOLPIDEM 5MG TABLET PO PRN (21:06)
[2021-01-21] MEDS: ACETAMINOPHEN 325 MG TABLET PO PRN (23:59)
[2021-01-22] MEDS: LORazepam 0.5MG TABLET PO PRN (01:21)
[2021-01-22] MEDS: LEVOTHYROXINE 25 MCG TABLET PO SCH (05:24)
[2021-01-22] MEDS: METOPROLOL SUCCINATE 25 MG TAB.ER.24H PO SCH (05:24)
[2021-01-22] MEDS: HYDROcodone/APAP 5/325 TABLET PO PRN (05:24)
[2021-01-22 05:28] VITALS: BP 110/70
[2021-01-22] MEDS: INSULIN LISPRO 100 UNITS/ML, PEN SQ-INSULIN SCH (07:00)
[2021-01-22 07:57] VITALS: BP 97/62
[2021-01-22] MEDS: MUPIROCIN OINT 2%, 22GM TP SCH (09:00)
[2021-01-22] MEDS: NICOTINE 7 MG/24 HR PATCH.TD24 TD SCH (09:10)
[2021-01-22] MEDS: DIVALPROEX 500 MG TABLET.DR PO SCH (09:11)
[2021-01-22] MEDS: LINAGLIPTIN 5 MG TAB PO SCH (09:11)
[2021-01-22] MEDS: BACLOFEN 10 MG TABLET PO SCH (09:11)
[2021-01-22] MEDS: QUETIAPINE 100MG TABLET PO SCH (09:12)
[2021-01-22] MEDS: metFORMIN 500 MG TABLET PO SCH (09:12)
[2021-01-22] MEDS: LITHIUM CARBONATE 300 MG CAPSULE PO SCH (09:12)
== END 2021-01-22 11:00 | disposition home or self-care (01) | DRG 885 ==
LOC: 3E 01-15 02:44
PROVIDERS: ADMIT Psychiatry & Neurology Psychosomatic Medicine; ATTEND Psychiatry & Neurology Psychosomatic Medicine
DX: F31.64 Bipolar disorder, current episode mixed, severe, with psychotic features (principal); R45.851 Suicidal ideations; E87.1 Hypo-osmolality and hyponatremia; E11.9 Type 2 diabetes mellitus without complications; I10 Essential (primary) hypertension; F17.210 Nicotine dependence, cigarettes, uncomplicated; G47.00 Insomnia, unspecified; E03.9 Hypothyroidism, unspecified; E66.9 Obesity, unspecified; M19.90 Unspecified osteoarthritis, unspecified site; F41.1 Generalized anxiety disorder; F43.10 Post-traumatic stress disorder, unspecified; E78.5 Hyperlipidemia, unspecified; J45.909 Unspecified asthma, uncomplicated; Z87.440 Personal history of urinary (tract) infections; Z68.36 Body mass index [BMI] 36.0-36.9, adult; Z79.84 Long term (current) use of oral hypoglycemic drugs; Z79.899 Other long term (current) drug therapy; Z88.2 Allergy status to sulfonamides
CPT/HCPCS: 36415; 80048; 80061; 80164; 80178; 81003; 81025; 82607; 82962; 83036; 84439; 84443; 84703; 85025; Q0162; J1815

== ENCOUNTER 2021-01-23 04:47 | Emergency (ER) | payer MEDICAID ==
[~2021-01-23] VITALS: Ht 154.9 cm; Wt 93.3 kg
[~2021-01-23 04:47] MED LIST changes: +BACL-19 PO; +DIVA-61 PO; +HYDR50CA2 PO; +LEVO25TA2 PO; +LINA5TAB PO; +LITH300C PO; +METO25TA91 PO; +NICO-485 TD
--- NOTE | 2021-01-23 04:51 | NUR ---
PT WENT STRAIGHT TO THE BATHROOM AFTER CHECKING IN, DELAY IN TRIAGE.
[2021-01-23 04:52] VITALS: BP 178/11
[2021-01-23] MEDS ORDERED: METOPROLOL SUCCINATE 25 MG TAB.ER.24H PO ONE (05:30)
[2021-01-23] MEDS ORDERED: LORazepam 1MG TABLET ONE (05:30)
[2021-01-23] MEDS ORDERED: LORazepam 1MG TABLET PO ONE (05:30)
== END 2021-01-23 06:20 | disposition home or self-care (01) ==
LOC: ED 05:50
DX: R07.89 Other chest pain (principal); F32.9 Major depressive disorder, single episode, unspecified; R10.31 Right lower quadrant pain; I10 Essential (primary) hypertension; E11.9 Type 2 diabetes mellitus without complications; J45.909 Unspecified asthma, uncomplicated; Z88.2 Allergy status to sulfonamides
CPT/HCPCS: 93005; 99283

== ENCOUNTER 2021-03-16 08:55 | Emergency (ER) | payer MEDICAID ==
[~2021-03-16] VITALS: Ht 154.9 cm; Wt 85.0 kg
[~2021-03-16 08:55] MED LIST changes: -ACYC-113 PO; +ACYC200C13 PO; -HYDR-1067 PO; +HYDR-2214 PO
--- NOTE | 2021-03-16 09:10 | NUR ---
PATIENT BIB EMS WITH CHIEF C/O LEFT-SIDED CHEST PAIN THAT STARTED ABOUT AN HOUR AGO. PATIENT WAS SMOKING A CIGARETTE WHEN CHEST PAIN STARTED. PER EMS PAIN IS REPRODUCIBLE WITH INSPIRATION AND NON-REPRODUCIBLE WITH TOUCH. PATIENT REPORTED NAUSEA AND EMS GAVE 4 MG ZOFRAN EN ROUTE. PATIENT ALSO REPORTS RLQ PAIN, BP WAS LOW ENROUTE AT 90'S/60'S AND NS BOLUS STARTED BY EMS. 12 LEAD NEGATIVE, BG 160. UPON ASSESSMENT BP IS 105/73, OTHER VSS, PATIENT REPORTS DRINKING 2-3 GLASSES OF WINE THIS MORNING, LAST DRINK "3 HOURS AGO." NADN, CALL LIGHT WITHIN REACH.
[2021-03-16] MEDS ORDERED: ASPIRIN 81 MG TABLET CHEW ONE (09:13)
[2021-03-16] MEDS ORDERED: ASPIRIN 81 MG TABLET CHEW PO ONE (09:30)
[2021-03-16] MEDS ORDERED: SODIUM CHLORIDE FLUSH 10ML SYR IVF ONE (09:30)
[2021-03-16 09:32] LABS: BASOPHILS % (AUTO) 1 % (0-1); EOSINOPHILS % (AUTO) 0 % (1-7); LYMPHOCYTES % (AUTO) 17 % (22-44); MEAN CORPUSCULAR HEMOGLOBIN 32.2 pg (27.0-34.8); MEAN CORPUSCULAR HGB CONC 33.6 g/dL (32.4-35.8); MEAN PLATELET VOLUME 7.4 fL (7.4-10.4); MONOCYTES % (AUTO) 5 % (2-9); NEUTROPHILS % (AUTO) 77 % (42-75); PLATELET COUNT 204 x10^3/uL (130-400); RED BLOOD COUNT 4.17 x10^6/uL (3.82-5.3); RED CELL DISTRIBUTION WIDTH 13.9 % (9.6-15.2)
[2021-03-16 09:35] LABS: MD NO
[2021-03-16 09:42] LABS: ALANINE AMINOTRANSFERASE 24 U/L (12-78); ANION GAP 15 mmol/L (5-15); CALCIUM 9.1 mg/dL (8.5-10.1); CHLORIDE 103 mmol/L (98-107); CREATININE 0.65 mg/dL (0.55-1.02)
[2021-03-16] MEDS ORDERED: AMPH20TA2 PO (09:42)
[2021-03-16] MEDS ORDERED: ZOLP-413 PO (09:42)
[2021-03-16 09:47] LABS: ALKALINE PHOSPHATASE 71 U/L (45-117); BILIRUBIN,TOTAL 0.4 mg/dL (0.2-1.0); TOTAL PROTEIN 7.6 g/dL (6.4-8.2); TROPONIN I < 0.015 ng/mL (0.000-0.045)
[2021-03-16] MEDS ORDERED: SODIUM CHLORIDE 0.9% 1,000ML IVBOLUS ONE (10:00)
[2021-03-16] MEDS ORDERED: LORazepam 1MG TABLET ONE (10:05)
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
[2021-03-16] MEDS ORDERED: LORazepam 1MG TABLET PO ONE (10:30)
--- NOTE | 2021-03-16 10:56 | NUR ---
PATIENT RESTING IN GURNEY WITH EYES CLOSED, RESP EVEN AND UNLABORED, VSS, CALL LIGHT WITHIN REACH. WAITING FOR REPEAT TROP AT 1230 AND PSYCH EVAL.
--- NOTE | 2021-03-16 11:48 | NUR ---
PATIENT RESTING IN GURNEY WITH EYES CLOSED, RESP EVEN AND UNLABORED, VSS, CALL LIGHT WITHIN REACH. REPEAT TROPONIN SCHEDULED FOR 1230.
--- NOTE | 2021-03-16 12:05 | NUR ---
DRAMATIC READER AT BEDSIDE AT BEDSIDE.
--- NOTE | 2021-03-16 12:24 | NUR ---
CHRISTOPH ROTH AT BEDSIDE FOR EVALUATION.
--- NOTE | 2021-03-16 12:41 | NUR ---
PATIENT AMBULATED TO BATHROOM WITH STEADY GAIT, BACK TO ROOM, CONNECTED TO MONITORS, NADN, VSS, CALL LIGHT WITHIN REACH. WAITING FOR 2ND TROPONIN RESULT AND RECOMMENDATION FROM PSYCH.
[2021-03-16 12:43] LABS: TROPONIN I < 0.015 ng/mL (0.000-0.045)
--- NOTE | 2021-03-16 13:34 | NUR ---
PT REQUESTING WARM BLANKETS. PT UPDATED ON POC AND BLANKETS PROVIDED.
--- NOTE | 2021-03-16 14:25 | NUR ---
PATIENT LAYING IN GURNEY WITH EYES CLOSED, RESP EVEN AND UNLABORED, VSS, CALL LIGHT WITHIN REACH. WAITING FOR ANSWER FROM [facility].
[2021-03-16 15:01] VITALS: BP 102/67
--- NOTE | 2021-03-16 15:22 | NUR ---
IV removed with tip intact. Patient given discharge instructions and prescriptions and they have confirmed that they understand the instructions. Patient stable and ambulatory with steady gait. All patient belongings gathered and taken with patient. Taxi voucher provided.
== END 2021-03-16 15:22 | disposition home or self-care (01) ==
LOC: ED 09:50
DX: R07.89 Other chest pain (principal); F33.9 Major depressive disorder, recurrent, unspecified; R94.31 Abnormal electrocardiogram [ECG] [EKG]
CPT/HCPCS: 36415; 71045; 80053; 80164; 80178; 84484; 85025; 93005; 96360; 99285; J7030

== ENCOUNTER 2021-03-16 17:17 | Emergency (ER) | payer MEDICAID ==
[~2021-03-16] VITALS: Ht 154.9 cm; Wt 84.1 kg
[~2021-03-16 17:17] MED LIST changes: +AMPH20TA2 PO
[2021-03-16 17:20] VITALS: BP 116/73
--- NOTE | 2021-03-16 17:30 | NUR ---
SPOKE WITH MT, AT [facility] INTAKE, AND NOTIFIED HER THAT PATIENT AFEBRILE HERE AND HAS NO COVID SYMPTOMS. MT REQUESTING THAT NORMAL VITALS BE FAXED TO [facility] AND SHE SUSPECTS THAT THE MD AT [facility] WILL ACCEPT PATIENT BACK TO [facility]. WILL FAX EVIDENCE OF SUCH.
[2021-03-16] MEDS ORDERED: IBUPROFEN 600 MG TABLET ONE (17:32)
--- NOTE | 2021-03-16 17:51 | NUR ---
FAXED SUMMARY REPORT WITH NORMAL VITALS TO [facility]. PATIENT STATES THAT [facility] HAS HER BELONGINGS.
[2021-03-16] MEDS ORDERED: IBUPROFEN 600 MG TABLET PO ONE (18:00)
--- NOTE | 2021-03-16 18:43 | NUR ---
THOUGHPUT: SPOKE WITH BRIAN AT [facility] ACCEPTING MD, EREN HERNÁNDEZ SIGNED MEDICALLY [facility], PACKET. CALLED [facility], NOT A MEMBER, SENT PCS TO [facility].
--- NOTE | 2021-03-16 19:08 | NUR ---
TP: PER NIKOLAS TODD FOR TRANSPORT AT 2000
[2021-03-16] MEDS ORDERED: LORazepam 1MG TABLET ONE (19:46)
--- NOTE | 2021-03-16 20:19 | NUR ---
PT AWAKE AND ALERT. AMBULATORY AND NO DISTRESS. PT TO BE TRANSFERRED AND [facility] HERE TO TAKE PT. REPORT GIVEN, AND BELONGINGS GIVEN TO PT FROM LOCKER.
== END 2021-03-16 20:22 ==
LOC: ED 18:33
DX: R45.851 Suicidal ideations (principal); E11.9 Type 2 diabetes mellitus without complications; E66.9 Obesity, unspecified; Z68.35 Body mass index [BMI] 35.0-35.9, adult
CPT/HCPCS: 99285; Q0177; 99283